=== PATIENT | male | born 1960 | race Caucasian/White ===

== ENCOUNTER → 2019-03-18 10:37 | Outpatient (BNVA) | payer MEDICARE, SELFPAY | PROVIDERS: Family Provider Family Medicine; Visit Provider Family Medicine | DX: M79.602 Pain in left arm (principal) | CPT/HCPCS: 73090 ==

== ENCOUNTER 2021-10-24 13:13 | Observation (INO) | payer MEDICARE, SELFPAY ==
[2021-10-24] VITALS (14 sets, daily range): BP systolic 120–163; BP diastolic 65–113; PULSE 57–78; RESP 12–21; TEMP 36.6; O2SAT 92–96; BMI 41.2
--- NOTE | 2021-10-24 13:29 | ECG_ITS ---
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 Measurements Intervals [place] Rate: 67 P: 29 NE: 179 QRS: -26 QRSD: 100 T: 7 QT: 301 QTc: 319 Interpretive Statements SINUS RHYTHM BORDERLINE LEFT AXIS DEVIATION [QRS AXIS < -20] NONSPECIFIC T-WAVE ABNORMALITY No previous ECG available for comparison Electronically Signed On 10-25-2021 15:36:03 CDT by Christelle Donovan M.D. [id number]
--- NOTE | 2021-10-24 13:51 | XR_ITS ---
WS: [id number] Exam: XR chest 1V portable [id number] Date/Time of Exam: 10/24/2021 2:11 PM Reason For Exam: cp Comparison 08/13/2009. Bibasal plaque atelectasis. The heart is enlarged. The lungs are fully expanded. Prominence of the vizcaino perior mediastinum appears to be chronic. Bony structures are intact. Coronary artery stenting noted. Recommendations: Follow-up with a detailed PA and lateral chest x-ray would yield more accurate evalu ation. XR/XR chest 1V portable [id number] IMPRESSION: 1. Cardiac enlargement. 2. Bibasal plaque atelectasis noted.
--- NOTE | 2021-10-24 14:17 | ED_ITS ---
HPI - General Adult General: Chief complaint: Chest Pain Stated complaint: Chest pains, SOB Time Seen by Provider: 10/24/21 14:00 History of Present Illness: Patient is 61-year-old male history of diabetes, chronic left lower extremity wound, hypertension, CAD with stent x13 followed by cardiology at [facility] presenting to the emergency with complaints of chest pain for the last 3 days. Patient has had intermittent worsening chest pressure for the last 3 days now acutely worsened in the last day. Patient also reports exertional dyspnea and dyspnea at rest. Patient denies any cough, runny nose, sore throat, diarrhea, melena/hematochezia. Patient no complaint. Denies any abdominal pain. Patient says the pain is similar to his prior presentation heart attack. Patient most recently had an evaluation for his heart in February 2021. Onset:3 days ago Duration:3 days Location:home Severity:moderate Associated symptoms: Reports chest pain; Deny dyspnea, nausea, palpitations or vomiting Review of Systems Const: Denies: fever(s) or chills Eyes: Denies: change in vision ENMT: Denies: mouth pain Card: Reports: chest pain and dyspnea on exertion; Denies: palpitations Resp: Denies: dyspnea or non-productive cough GI: Denies: abdominal pain, nausea, vomiting or diarrhea : Denies: dysuria Musc: Denies: extremity pain Skin/Breast: Reports: new lesions (+L diabetic foot wound) Neuro: Denies: weakness in extremities Psych: Reports: other (Normal mood) Rolf/Lymph: Denies: easy bruising [facility] ED PFSH: Medical History CAD (coronary artery disease) COPD (chronic obstructive pulmonary disease) Diabetes Diabetic foot infection Hypertension STEMI (ST elevation myocardial infarction) Social History Smoking and tobacco status: current every day smoker Alcohol intake: never Substance/Drug Use: never Physical Exam Const: COMMON NORMALS: alert HENMT: COMMON NORMALS: atraumatic HEAD & SCALP: atraumatic MOUTH: moist mucous membranes not abnormal Eye: COMMON NORMALS: EOMs intact bilaterally and conjunctivae normal CONJUNCTIVA: Yes conjunctivae normal Neck/C-Spine: COMMON NORMALS: full ROM and supple Resp: COMMON NORMALS: normal respiratory effort and clear to auscultation bilaterally AUSCULTATION: clear to auscultation bilaterally Cardio: COMMON NORMALS: regular rate RATE: regular rate OTHER: 2+ radial pulses b/l GI: COMMON NORMALS: Soft to palpation and non-tender PALPATION: Yes Soft to palpation OTHER: No focal TTP. NO guarding rebound, guarding, rigidity. No CVA tenderness to percussion. Neg Velazquez/Neg McBurney's point tenderness, no suprabupic tenderness to palpation. Extremity: COMMON NORMALS: full ROM Neuro: SENSORIUM/ORIENTATION: Yes alert MOTOR EXAM: No Abnormal motor strength present and Other motor observations present (no focal motor deficits) Psych: COMMON NORMALS: speech normal SPEECH: Yes normal speech MOOD & AFFECT: Yes euthymic mood Skin: NARRATIVE SKIN EXAM: +Granulating wound over the L plantar foot at the base of the first digit without any pus or drainage Course Vital Signs: Vital signs: Vital Signs Temperature 98 F 10/24/21 13:25 Pulse Rate 68 10/24/21 13:25 Respiratory Rate 15 10/24/21 14:41 Blood Pressure 138/85 10/24/21 13:25 Pulse Oximetry 93 10/24/21 14:41 MDM - General Adult Medical Decision Making Patient is 61-year-old male history of diabetes, chronic left lower extremity wound, hypertension, CAD with stent x13 followed by cardiology at [facility] presenting to the emergency with complaints of chest pain for the last 3 days. On exam, patient is hemodynamically stable without any focal findings. Patient continues to have 7 out of 10 chest pain. Patient received morphine with improvement chest pain. Initial EKG not meet STEMI criteria. Given extensive cardiac history, patient will be mated to hospital further work-up chest pain. Patient had 325mg of aspirin and 3 dose of nitro from earlier today. Disposition: admission Lab Data : 10/24/21 14:24 10/24/21 14:24 Radiology Impressions Chest X-Ray 10/24/21 13:51 IMPRESSION: 1. Cardiac enlargement. 2. Bibasal plaque atelectasis noted. Laboratory Results WBC 9.6 10^3/uL (4.0-10.0) 10/24/21 14:24 RBC 4.51 10^6/uL (4.1-5.3) 10/24/21 14:24 Hgb 13.6 g/dL (11.7-16.6) 10/24/21 14:24 Hct 40.2 % (42.0-52.0) L 10/24/21 14:24 MCV 89.1 fl (80-94) 10/24/21 14:24 MCH 30.2 pg (28.0-34.0) 10/24/21 14:24 MCHC 33.8 g/dL (30.0-36.0) 10/24/21 14:24 RDW 12.2 % (12.1-15.1) 10/24/21 14:24 Plt Count 240 10^3/cmm (130-400) 10/24/21 14:24 MPV 8.5 fL (7.4-10.4) 10/24/21 14:24 Neut % (Auto) 69.4 % 10/24/21 14:24 Lymph % (Auto) 20.6 % 10/24/21 14:24 [place] % (Auto) 7.4 % 10/24/21 14:24 Eos % (Auto) 1.7 % 10/24/21 14:24 Baso % (Auto) 0.7 % 10/24/21 14:24 Neut # (Auto) 6.65 10^3/uL (1.8-7.7) 10/24/21 14:24 Lymph # (Auto) 2.0 10^3/uL (0.8-4.8) 10/24/21 14:24 [place] # (Auto) 0.7 10^3/uL (0.2-0.9) 10/24/21 14:24 Eos # (Auto) 0.2 10^3/uL (0.0-0.8) 10/24/21 14:24 Baso # (Auto) 0.1 10^3/uL (0.0-0.1) 10/24/21 14:24 Nucleated RBC % (auto) 0 % 10/24/21 14: Nucleated RBCs # 0.0 /100WBC 10/24/21 14:24 Sodium 130 mmol/L (136-145) L 10/24/21 14:24 Potassium 4.0 mmol/L (3.5-5.1) 10/24/21 14:24 Chloride 88 mmol/L (98-107) L 10/24/21 14:24 Carbon Dioxide 33 mmol/L (22-29) H 10/24/21 14:24 Anion Gap 13.0 (5-19) 10/24/21 14:24 BUN 15 mg/dL (8-23) 10/24/21 14:24 Creatinine 1.0 mg/dL (0.7-1.2) 10/24/21 14:24 GFR Calculation 76.0 mL/min (90-130) L 10/24/21 14:24 Glucose 253 mg/dL (65-115) H 10/24/21 14:24 Calculated Osmolality 279 mOsm/kg (285-295) L 10/24/21 14:24 Calcium 9.5 mg/dL (8.5-10.5) 10/24/21 14:24 Total Bilirubin 0.2 mg/dL (0.15-1.2) 10/24/21 14:24 AST 10 U/L (0-40) 10/24/21 14:24 ALT 19 U/L (0-41) 10/24/21 14:24 Alkaline Phosphatase 67 U/L (40-130) 10/24/21 14:24 Troponin T Baseline 11 ng/L (0-15) 10/24/21 14:24 NT-Pro-B Natriuret Pep 70 pg/mL (0-125) 10/24/21 14:24 NT-Pro-B Natriuret Pep Cancelled 10/24/21 14:24 Total Protein 6.8 g/dL (6.6-8.7) 10/24/21 14:24 Albumin 3.9 g/dL (3.5-5.2) 10/24/21 14:24 Globulin 2.9 g/dL (1.3-4.6) 10/24/21 14:24 Imaging Data Other Imaging: Radiologist's impression: [address] [place] [address] XRay Report Signed Patient: Norman Phan Unit #: [id number] : 1960 Age/Sex: 61 / M ADM Date: 10/24/21 Loc: ER Room/Bed: Attending Dr: Ordering Provider/Ordering MD: Silvestre Willams MD Date of Service: 10/24/21 Procedure(s): XR chest 1V portable [id number] Accession Number(s): [id number] Report Number: [id number] WS: [id number] Exam: XR chest 1V portable [id number] Date/Time of Exam: 10/24/2021 2:11 PM Reason For Exam: cp Comparison 08/13/2009. Bibasal plaque atelectasis. The heart is enlarged. The lungs are fully expanded. Prominence of the superior mediastinum appears to be chronic. Bony structures are intact. Coronary artery stenting noted. Recommendations: Follow-up with a detailed PA and lateral chest x-ray would y ield more accurate evaluation. XR/XR chest 1V portable [id number] IMPRESSION: 1. Cardiac enlargement. 2. Bibasal plaque atelectasis noted. ? 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
[2021-10-24 14:31] LABS: Basophils # 0.1 10^3/uL (0.0-0.1); Basophils % 0.7 %; Eosinophils # 0.2 10^3/uL (0.0-0.8); Eosinophils % 1.7 %; Hematocrit 40.2 % (42.0-52.0); Hemoglobin 13.6 g/dL (11.7-16.6); Lymphocytes % 20.6 %; Mean Corpuscular HGB Conc 33.8 g/dL (30.0-36.0); Mean Corpuscular Hemoglobin 30.2 pg (28.0-34.0); Mean Corpuscular Volume 89.1 fl (80-94); Mean Platelet Volume 8.5 fL (7.4-10.4); Monocytes # 0.7 10^3/uL (0.2-0.9); Monocytes % 7.4 %; Neutrophils # 6.65 10^3/uL (1.8-7.7); Neutrophils % 69.4 %; Nucleated Red Blood Cells % 0 %; Platelet Count 240 10^3/cmm (130-400); Red Blood Count 4.51 10^6/uL (4.1-5.3); Red Cell Distribution Width 12.2 % (12.1-15.1); White Blood Count 9.6 10^3/uL (4.0-10.0)
[2021-10-24] MEDS: morphine 4 mg/mL SDV 1 mL IVP (14:41)
[2021-10-24 14:58] LABS: Troponin(5th) Baseline 11 ng/L (0-15)
--- NOTE | 2021-10-24 15:06 | PC.PHAR ---
PT STATES HIS TAKES CARE OF HIS MEDICATIONS-PTS VERIFIED PTS MEDS-PTS STATES THE PT USES HIS LANTUS SOLOSTAR 37 UNITS TID PLUS SLIDING SCALE RX FILLED 09/30/21 FOR 40 UNITS HS-
[2021-10-24 15:08] LABS: Alanine Aminotransferase 19 U/L (0-41); Albumin Level 3.9 g/dL (3.5-5.2); Alkaline Phosphatase 67 U/L (40-130); Aspartate Amino Transferase 10 U/L (0-40); Blood Urea Nitrogen 15 mg/dL (8-23); Calcium 9.5 mg/dL (8.5-10.5); Carbon Dioxide 33 mmol/L (22-29); Chloride 88 mmol/L (98-107); Globulin 2.9 g/dL (1.3-4.6); Glucose 253 mg/dL (65-115); NT Pro B Type Natriuretic Pept 70 pg/mL (0-125); Osmolality Calculated 279 mOsm/kg (285-295); Sodium 130 mmol/L (136-145); Total Bilirubin 0.2 mg/dL (0.15-1.2); Total Protein 6.8 g/dL (6.6-8.7)
[2021-10-24 16:11] LABS: Estmated Average Glucose 220; Hemoglobin A1C 9.3 % (4.0-6.0)
[2021-10-24 16:27] LABS: Chol HDL Ratio 11.66 mg/dL (1.0-5.00); Cholesterol 373 mg/dL (0-200); HDL Cholesterol 32 mg/dL (60-100); Triglycerides 645 mg/dL (0-150)
[2021-10-24 16:28] LABS: NT Pro B Type Natriuretic Pept 69 pg/mL (0-125)
[2021-10-24 16:41] LABS: LDL Cholesterol Direct 229 mg/dL (0-100)
--- NOTE | 2021-10-24 17:01 | ECG_ITS ---
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 Measurements Intervals [place] Rate: 65 P: 19 ME: 180 QRS: -7 QRSD: 106 T: 12 QT: 345 QTc: 359 Interpretive Statements SINUS RHYTHM WITH OCCASIONAL SUPRAVENTRICULAR PREMATURE COMPLEXES POSSIBLE LATERAL MYOCARDIAL INFARCTION , OF INDETERMINATE AGE [30 ms Q WAVE IN I/aVL/V5/V6] Compared to ECG 10/24/2021 13:29:04 Myocardial infarct finding now present T-wave abnormality no longer present Electronically Signed On 10-25-2021 15:50:19 CDT by Christelle Donovan M.D. [id number]
[2021-10-24 17:07] LABS: Troponin 5 2HR 10.26 ng/L (0-15)
--- NOTE | 2021-10-24 17:45 | PM.HP ---
Providers/Chief Complaint Admitting Physician: Cony Aragon MD Chief Complaint: Chest pains, SOB History of Present Illness Norman Phan is a 61 year old male who has mild intellectual challenges, history of 13 coronary artery stents at [facility], type II diabetic, status post left foot amputation follows up with wound care, hypertensive, allergic to Spiriva history of COPD not oxygen dependent presented today with chief complaint of chest pain. Patient is stating that for last 3 weeks he has been experiencing chest pain which is very similar to the pain when he had stent placed, last stent was placed in December 2020 he has been compliant with his medication, non-smoker. Patient is stating that his chest pain onset is random, he is describing his pain as burning sensation which gives him some chest heaviness sometimes. He has not noticed any fever, nausea, vomiting but endorsing acid reflux. Today they were dropping off his friend in [place] when he started complaining of chest pain to his in the car and his brought him to the ER. At the time of my evaluation patient is stating that he still has a pain however when I put some pressure around his sternum area it was reproducible His left toe has been recently debrided by the wound care, he has been given offloading boot to ambulate, toe seems to be showing good signs of granulation no signs of active bleeding or purulence no sign of cellulitis he has been taking doxycycline for last 4 days Hemodynamically stable however he is hypertensive heart rate is below 80 He is currently doing well on room air Considering history of coronary artery disease and vague symptoms Dr. Donovan was consulted for further evaluation we have requested records from his [facility] I will give him GI cocktail and increase the dose of Coreg He will need optimization of antianginal He uses BiPAP at night Non-smoker, nonalcoholic Patient is not a good historian, is stating that he has been put on rivaroxaban because of his significant coronary disease he never had any diagnosis of atrial flutter or atrial fibrillation DVT or PE Review of Systems Const: Reports: body aches and fatigue Eyes: Denies: change in vision ENMT: Denies: throat pain Card: Reports: chest pain and orthopnea Resp: Reports: dyspnea GI: Reports: nausea : Denies: flank pain Musc: Denies: neck pain Skin/Breast: Reports: lesions Neuro: Denies: headache(s) Psych: Reports: anxiety Endo: Denies: polyuria Rolf/Lymph: Denies: easy bruising All/Imm: Denies: urticaria Medications/Allergies Home Medications Medication Instructions Recorded Confirmed Last Taken Type aspirin 81 mg tablet,delayed 81 mg PO QAM 10/24/21 10/24/21 10/24/21 04:30 History release carvedilol 3.125 mg tablet 3.125 mg PO BID 10/24/21 10/24/21 10/24/21 04:30 History dicyclomine 20 mg tablet 20 mg PO BID 10/24/21 10/24/21 10/24/21 04:30 History doxycycline hyclate 100 mg capsule 100 mg PO BID 10/24/21 10/24/21 10/24/21 04:30 History fluoxetine 20 mg capsule 20 mg PO QAM 10/24/21 10/24/21 10/24/21 04:30 History fluticasone 250 mcg-salmeterol 50 1 inh inhalation BID 10/24/21 10/24/21 10/24/21 History mcg/dose blistr powdr for inhalation (Advair Diskus) furosemide 40 mg tablet 120 mg PO QAM 10/24/21 10/24/21 10/24/21 History gabapentin 600 mg tablet 600 mg PO TID 10/24/21 10/24/21 10/24/21 04:30 History glipizide 10 mg tablet 10 mg PO QAM 10/24/21 10/24/21 10/24/21 04:30 History hydrochlorothiazide 25 mg tablet 25 mg PO QAM 10/24/21 10/24/21 10/24/21 04:30 History insulin glargine 100 unit/mL (3 See Rx Instructions .Route .COMPLEX 10/24/21 10/24/21 10/24/21 History mL) subcutaneous pen (Lantus 42 UNITS Solostar U-100 Insulin) magnesium oxide 400 mg PO QAM 10/24/21 10/24/21 10/24/21 04:30 History metformin 1,000 mg tablet 1,000 mg PO BID 10/24/21 10/24/21 10/24/21 04:30 History methocarbamol 750 mg tablet 750 mg PO TID 10/24/21 10/24/21 10/24/21 04:30 History nifedipine 30 mg tablet,extended 30 mg PO QAM 10/24/21 10/24/21 10/24/21 04:30 History release oxycodone-acetaminophen 10 mg-325 1 tab PO TID PRN Pain 10/24/21 10/24/21 10/24/21 04:30 History mg tablet potassium gluconate 595 mg (99 mg) 595 mg PO DAILY PRN UNKNOWN 10/24/21 10/24/21 Unknown History tablet ranolazine 1,000 mg 1,000 mg PO BID 10/24/21 10/24/21 10/24/21 04:30 History tablet,extended release,12 hr risperidone 1 mg tablet See Rx Instructions .Route .COMPLEX 10/24/21 10/24/21 10/24/21 04:30 History 1 MG rivaroxaban 2.5 mg tablet (Xarelto) 2.5 mg PO BID 10/24/21 10/24/21 10/24/21 04:30 History spironolactone 25 mg tablet 12.5 mg PO QAM 10/24/21 10/24/21 10/24/21 04:30 History trazodone 50 mg tablet 100 mg PO BEDTIME 10/24/21 10/24/21 10/23/21 History Allergies Allergy/AdvReac Type Severity Reaction Status Date / Time insulin aspart Allergy ALGY-Hives Verified 10/24/21 14:49 [From Novolog U-100 Insulin aspart] tiotropium Allergy CHEST Verified 10/24/21 14:49 [From Spiriva with TIGHTNESS HandiHaler] PFSH Acute PFSH: Medical History (Updated 10/24/21 @ 18:48 by Esha Galaviz MD) Amputation toe CAD (coronary artery disease) COPD (chronic obstructive pulmonary disease) Diabetes Diabetic foot infection Hypertension STEMI (ST elevation myocardial infarction) Surgical History Stented coronary artery Family History (Updated 10/24/21 @ 18:48 by Esha Galaviz MD) Other Diabetes Social History Smoking and tobacco status: current every day smoker Alcohol intake: never Substance/Drug Use: never Vitals/I&O/Wt Last Vital Signs Temp 98 F 10/24/21 13:25 Pulse 71 10/24/21 16:30 Resp 15 10/24/21 16:30 BP 163/88 10/24/21 17:00 Pulse Ox 93 10/24/21 16:30 O2 Del Method 10/24/21 17:00 Weight last 48 hrs Weight 149.685 kg Weight 149.685 kg Physical Exam Narrative: Morbidly obese male Has reproducible chest pain No active pain at the time of evaluation He is hypertensive EOMI, PERRLA Nonfocal neuro exam Abdomen distended however soft nontender S1, S2 Grade 2/6 systolic murmur Left foot toes showing good signs of granulation no active signs of purulence Good healing tissue Dressing was changed No signs of edema of legs Currently doing well on room air at the bedside Data : 10/24/21 14:24 10/24/21 14:24 A&P Assessment and plan (1) Chest pain: Status: Acute (2) Hypertensive urgency: Status: Acute Plan Reproducible chest pain Atypical features However considering significant coronary disease with history of 13 stents we have requested records from his hospital Requested Dr. Donovan to evaluate him as well Troponin nonsignificant Nonspecific T wave changes Chest pain is reproducible Trend troponin and EKG I will give him GI cocktail, I will optimize his antianginal for now increase the dose of Coreg he is hypertensive ideally his blood pressure should be below 130 considering history of diabetes Dyslipidemia and poorly controlled type 2 diabetes seem to be causing worsening of coronary disease, patient is endorsing significant family history of coronary disease as well Uncontrolled type 2 diabetes as per the he takes 37 units of Lantus 3 times a day along 7 units of short acting insulin Premeal and still sugar is above 200 at home Hyponatremia related to hyperglycemia A1c is 9.3 Left toe blister he is only taken 4 days of doxycycline which was prescribed by PCP, he was recently released from wound care his toe is showing good signs of granulation tissue and healing He has an offloading boot as well He does have home health services, wound care follow-up COPD not oxygen dependent uses BiPAP at night It seems to be related to severe sleep apnea I will continue BiPAP overnight We will follow-up with cardiology recommendations For now he needs optimization of antianginal medications Full code DVT prophylaxis will be sufficed with rivaroxaban Check D-dimer Extremity no swelling Consistent carb cardiac diet Attestations Medical Necessity Statement*: Less than 2 midnights anticipated for work-up of chest pain Time Spent in Patient Care: 40 Coding Level of Care Code 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
[2021-10-24 17:59] LABS: Troponin 5 2HR Delta -0.74 ABS# (0-10)
--- NOTE | 2021-10-24 18:21 | P.CONIM_ITS ---
Providers/Reason For Consult Consulting Physician/Specialty*: STEFANIE Donovan MD/cardiology Reason for Consult*: Patient is a chest pain/ASHD Requesting Physician: Dr. Aragon Attending Physician: Cony Aragon MD History of Present Illness History of Present Illness Norman Phan is a 61 year old male with a history of coronary artery disease, multiple myocardial infarction and multiple PCI's, he is presenting with a 3-day history of chest pain. This patient is a very poor historian. He also has some learning disabilities. According the patient, he started having chest pain 3 days ago. The intensity of the pain was 6/10. It was in the upper substernal region, radiating across the chest. It has been a constant pain. No significant changes. He has no associated nausea, vomiting, sweating, palpitation or unusual shortness of breath. Today he was taking a troubled kid today new residence here in [place]. While being here, his pain started getting worse, became 9/10. For that reason, he decided to come to the emergency room. Last night he took 3 sublingual nitro at 5 minutes interval. After the third 1, he got some relief of the pain. He took 2 nitroglycerin mainly to get some sleep since he was not having any sleep for the previous couple of nights. According to the patient, he had a total of 9 heart attacks and 13 stent placements. The most recent PCI was in December of last year. 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 Most of his coronary interventions were done at the [facility] in [place]. He has been compliant with medications. He has not had any significant chest pain since his last intervention, up until 3 days ago. According to the patient, the chest pain that he has now is different from the pain that he used to get prior to his PCI's. He also is known to have type 2 diabetes, high blood pressure, dyslipidemia, multiple CVAs, peripheral artery disease and COPD. He has a nonhealing ulcer in the left foot. He is left big toe and second toe where amputated recently. Currently the wound seems to be healing. He has a questionable history of peripheral arterial disease but the details are not known. He is taking Xarelto 2.5 mg p.o. daily. He also is known to have carotid artery disease and had? Carotid endarterectomy on the right side. He had some complications after carotid surgery?. Currently at the time of my examination, the pain is 3/10. He got some relief of the symptoms after GI cocktail. Review of Systems Narrative: CONSTITUTIONAL: No fever or chills. Has some amount of tiredness. EYES: No blurring of vision or other visual disturbances lately. ENT: No hoarseness of voice, auditory disturbances or sore throat. CARDIOVASCULAR: As mentioned above. RESPIRATORY: History of COPD GASTROINTESTINAL: No hematemesis or melena. GENITOURINARY: No dysuria or hematuria. INTEGUMENTARY: No skin rashes or history of skin cancer. NEURO: History of multiple CVAs PSYCHIATRIC: No history of psychosis or major depression. HEMATOLOGIC: No bleeding disorders or significant anemia. ENDOCRINE: Type 2 diabetes MUSCULOSKELETAL: Diabetic foot ulcer? Osteomyelitis and toe amputations ALLERGY/IMMUNOLOGY: As mentioned above. Medications/Allergies Home Medications Medication Instructions Recorded Confirmed Last Taken Type aspirin 81 mg tablet,delayed 81 mg PO QAM 10/24/21 10/24/21 10/24/21 04:30 History release carvedilol 3.125 mg tablet 3.125 mg PO BID 10/24/21 10/24/21 10/24/21 04:30 History dicyclomine 20 mg tablet 20 mg PO BID 10/24/21 10/24/21 10/24/21 04:30 History doxycycline hyclate 100 mg capsule 100 mg PO BID 10/24/21 10/24/21 10/24/21 04:30 History fluoxetine 20 mg capsule 20 mg PO QAM 10/24/21 10/24/21 10/24/21 04:30 History fluticasone 250 mcg-salmeterol 50 1 inh inhalation BID 10/24/21 10/24/21 10/24/21 History mcg/dose blistr powdr for inhalation (Advair Diskus) furosemide 40 mg tablet 120 mg PO QAM 10/24/21 10/24/21 10/24/21 History gabapentin 600 mg tablet 600 mg PO TID 10/24/21 10/24/21 10/24/21 04:30 History glipizide 10 mg tablet 10 mg PO QAM 10/24/21 10/24/21 10/24/21 04:30 History hydrochlorothiazide 25 mg tablet 25 mg PO QAM 10/24/21 10/24/2110/24/22 04:30 History insulin glargine 100 unit/mL (3 See Rx Instructions .Route .COMPLEX 10/24/21 10/24/21 10/24/21 History mL) subcutaneous pen (Lantus 42 UNITS Solostar U-100 Insulin) magnesium oxide 400 mg PO QAM 10/24/21 10/24/21 10/24/21 04:30 History metformin 1,000 mg tablet 1,000 mg PO BID 10/24/21 10/24/21 10/24/21 04:30 History methocarbamol 750 mg tablet 750 mg PO TID 10/24/21 10/24/21 10/24/21 04:30 History nifedipine 30 mg tablet,extended 30 mg PO QAM 10/24/21 10/24/21 10/24/21 04:30 History release oxycodone-acetaminophen 10 mg-325 1 tab PO TID PRN Pain 10/24/21 10/24/21 09/0 03/16 04:30 History mg tablet potassium gluconate 595 mg (99 mg) 595 mg PO DAILY PRN UNKNOWN 10/24/21 10/24/21 Unknown History tablet ranolazine 1,000 mg 1,000 mg PO BID 10/24/21 10/24/21 10/24/21 04:30 History tablet,extended release,12 hr risperidone 1 mg tablet See Rx Instructions .Route .COMPLEX 10/24/21 10/24/21 10/24/21 04:30 History 1 MG rivaroxaban 2.5 mg tablet (Xarelto) 2.5 mg PO BID 10/24/21 10/24/21 10/24/21 04:30 History spironolactone 25 mg tablet 12.5 mg PO QAM 10/24/21 10/24/21 10/24/21 04:30 History trazodone 50 mg tablet 100 mg PO BEDTIME 10/24/21 10/24/21 10/23/21 History Allergies Allergy/AdvReac Type Severity Reaction Status Date / Time insulin aspart Allergy ALGY-Hives Verified 10/24/21 14:49 [From Novolog U-100 Insulin aspart] tiotropium Allergy CHEST Verified 10/24/21 14:49 [From Spiriva with TIGHTNESS HandiHaler] PFSH Acute PFSH: Medical History (Updated 10/24/21 @ 19:24 by Christelle Donovan MD) Amputation toe CAD (coronary artery disease) COPD (chronic obstructive pulmonary disease) Diabetes Diabetic foot infection Hypertension STEMI (ST elevation myocardial infarction) Surgical History Stented coronary artery Family History (Updated 10/24/21 @ 18:48 by Esha Galaviz MD) Other Diabetes Social History Smoking and tobacco status: current every day smoker Alcohol intake: never Substance/Drug Use: never Vitals/I&O/Wt Last Vital Signs Temp 98 F 10/24/21 13:25 Pulse 71 10/24/21 16:30 Resp 15 10/24/21 16:30 BP 163/88 10/24/21 17:00 Pulse Ox 93 10/24/21 16:30 O2 Del Method 10/24/21 17:00 Weight last 48 hrs Weight 330 lb Weight 330 lb Physical Exam Narrative: GENERAL: The patient is alert and oriented times three. Not in any acute distress. Moderately obese HEENT: No significant pallor, icterus or lymphadenopathy.Oral cavity: There are no mucous membrane lesions. Patient is legally blind in the left eye, from traumatic injury NECK: Trachea appears to be central. No masses noted. No JVD or thyromegaly appreciated. RESPIRATORY: Chest is symmetrical. No intercostals muscle retraction or any accessory muscle activation. There is no chest wall tenderness. Breath sounds are heard bilaterally. No rales or rhonchi heard. No evidence of any consolidation. BREASTS: Deferred. HEART: The heart sounds are normal. No S3 or S4. No significant murmurs. No pericardial rub ABDOMEN: No vessel pulsations or distention. No tenderness. No organomegaly appreciated. Bowel sounds are normally heard. : Deferred. RECTAL: Deferred. LYMPHATIC: No lymphadenopathy noted in the neck. EXTREMITIES: The left foot is bandaged. The dorsalis pedis and posterior pulses on the right side is palpable but somewhat weak. MUSCULOSKELETAL: No acute joint deformities or swelling SKIN: There are no significant rashes or ecchymosis NEUROPSYCHIATRIC: The patient is alert and oriented x3. Appears to be in a good mood. No tremors or rigidity noted. Data : 10/24/21 14:24 10/24/21 14:24 Other Labs: Laboratory Last Values WBC 9.6 10^3/uL (4.0-10.0) 10/24/21 14:24 RBC 4.51 10^6/uL (4.1-5.3) 10/24/21 14:24 Hgb 13.6 g/dL (11.7-16.6) 10/24/21 14:24 Hct 40.2 % (42.0-52.0) L 10/24/21 14:24 MCV 89.1 fl (80-94) 10/24/21 14:24 MCH 30.2 pg (28.0-34.0) 10/24/21 14:24 MCHC 33.8 g/dL (30.0-36.0) 10/24/21 14:24 RDW 12.2 % (12.1-15.1) 10/24/21 14:24 Plt Count 240 10^3/cmm (130-400) 10/24/21 14:24 MPV 8.5 fL (7.4-10.4) 10/24/21 14:24 Neut % (Auto) 69.4 % 10/24/21 14:24 Lymph % (Auto) 20.6 % 10/24/21 14:24 [place] % (Auto) 7.4 % 10/24/21 14:24 Eos % (Auto) 1.7 % 10/24/21 14:24 Baso % (Auto) 0.7 % 10/24/21 14:24 Neut # (Auto) 6.65 10^3/uL (1.8-7.7) 10/24/21 14:24 Lymph # (Auto) 2.0 10^3/uL (0.8-4.8) 10/24/21 14:24 [place] # (Auto) 0.7 10^3/uL (0.2-0.9) 10/24/21 14:24 Eos # (Auto) 0.2 10^3/uL (0.0-0.8) 10/24/21 14:24 Baso # (Auto) 0.1 10^3/uL (0.0-0.1) 10/24/21 14:24 Nucleated RBC % (auto) 0 % 10/24/21 14:24 Nucleated RBCs # 0.0 /100WBC 10/24/21 14:24 PT 13.90 SECONDS (12.1-14.9) 10/24/21 14:24 INR 1.04 (0.8-1.2) 10/24/21 14:24 APTT 36.6 SECONDS (23.9-36.7) 10/24/21 14:24 Sodium 130 mmol/L (136-145) L 10/24/21 14:24 Potassium 4.0 mmol/L (3.5-5.1) 10/24/21 14:24 Chloride 88 mmol/L (98-107) L 10/24/21 14:24 Carbon Dioxide 33 mmol/L (22-29) H 10/24/21 14:24 Anion Gap 13.0 (5-19) 10/24/21 14:24 BUN 15 mg/dL (8-23) 10/24/21 14:24 Creatinine 1.0 mg/dL (0.7-1.2) 10/24/21 14:24 GFR Calculation 76.0 mL/min (90-130) L 10/24/21 14:24 Glucose 253 mg/dL (65-115) H 10/24/21 14:24 Estimat Average Glucose 220 10/24/21 14:24 Hemoglobin A1c 9.3 % (4.0-6.0) H 10/24/21 14:24 Calculated Osmolality 279 mOsm/kg (285-295) L 10/24/21 14:24 Calcium 9.5 mg/dL (8.5-10.5) 10/24/21 14:24 Total Bilirubin 0.2 mg/dL (0.15-1.2) 10/24/21 14:24 AST 10 U/L (0-40) 10/24/21 14:24 ALT 19 U/L (0-41) 10/24/21 14:24 Alkaline Phosphatase 67 U/L (40-130) 10/24/21 14:24 Troponin T Baseline 11 ng/L (0-15) 10/24/21 14:24 Troponin T 120 Minute 10.26 ng/L (0-15) 10/24/21 16:30 Delta Troponin T -0.74 ABS# (0-10) L 10/24/21 16:30 NT-Pro-B Natriuret Pep 69 pg/mL (0-125) 10/24/21 14:24 NT-Pro-B Natriuret Pep 70 pg/mL (0-125) 10/24/21 14:24 NT-Pro-B Natriuret Pep Cancelled 10/24/21 14:24 Total Protein 6.8 g/dL (6.6-8.7) 10/24/21 14:24 Albumin 3.9 g/dL (3.5-5.2) 10/24/21 14:24 Globulin 2.9 g/dL (1.3-4.6) 10/24/21 14:24 Triglycerides 645 mg/dL (0-150) H 10/24/21 14:24 Cholesterol 373 mg/dL (0-200) H 10/24/21 14:24 LDL Cholesterol Direct 229 mg/dL (0-100) H 10/24/21 14:24 LDL Cholesterol, Calc Not Reportable 10/24/21 14:24 HDL Cholesterol 32 mg/dL (60-100) L 10/24/21 14:24 LDL/HDL Ratio Not Reportable 10/24/21 14:24 Cholesterol/HDL Ratio 11.66 mg/dL (1.0-5.00) H 10/24/21 14:24 TSH 4.20 uIU/mL (0.27-4.20) 10/24/21 14:24 EKG 1: My Interpretation: Normal sinus rhythm with a rate of 65 bpm. Diffuse nonspecific T wave changes. EKG computer-generated impression: Chest X-Ray 10/24/21 13:51 IMPRESSION: 1. Cardiac enlargement. 2. Bibasal plaque atelectasis noted. A&P Assessment and plan (1) Chest pain: the patient's chest pain is somewhat atypical. EKG is unremarkable. No e vidence of myocardial injury. For further evaluation of his symptoms, we may go ahead and do an echocardiogram. I also may consider doing a Myocardial perfusion imaging, to evaluate for any underlying coronary ischemia. We will try to get the medical records from [place]. I may continue on the current medication. Topical nitrates may be added to the current regimen. In the absence of any EKG changes or any myocardial injury, I may hold off on the heparin. Status: Acute (2) Atherosclerotic heart disease of ruby coronary artery with other forms of angina pectoris: As mentioned above. We will try to get the medical records from the [facility]. Status: Acute (3) Benign essential HTN: Currently the blood pressure is a we will try to optimize the antihypertensive medications. Status: Acute (4) Peripheral arterial disease: Patient may continue with he has no specific symptoms of peripheral arterial insufficiency at this time. Status: Acute (5) Non-healing ulcer: Patient is being followed up at the wound care clinic. Currently the wound seems to be healing especially after the amputation. Status: Acute (6) T2DM (type 2 diabetes mellitus): Aggressive management of the diabetes will be appropriate. Status: Acute Plan After reviewing the above and also based on the patient's clinical progress, further recommendations will be made. 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
[2021-10-24] MEDS: carvedilol 25 mg Tablet PO (18:49)
[2021-10-24] MEDS: lidocaine 2% viscous 15 ML, aluminum-mag hydrox-simethicon 30 ML, sucralfate oral liq 1 GM PO (18:49)
[2021-10-24] MEDS: oxyCODONE-APAP 10-325 mg Tablet 1 TAB PO (18:50)
--- NOTE | 2021-10-24 18:56 | USCV_ITS ---
Norman Phan Age: 61 Gender: M : 1960 Exam Date: 10/24/2021 21:25 Ordering Phys: Esha Galaviz MD Technologist: ASIF Exam Location: [facility] [place] Indication: UA. History of cardiac stenting 2017 BP: 163 / 88 HR: 71 Rhythm: Sinus Technical Quality: Technically difficult study no adequate apical views MEASUREMENTS (Male / Female) Normal Values 2D ECHO LV Diastolic Diameter PLAX 4.6 cm 4.2 - 5.9 / 3.9 - 5.3 cm LV Systolic Diameter PLAX 3.2 cm IVS Diastolic Thickness 1.4 cm 0.6 - 1.0 / 0.6 - 0.9 cm IVS Systolic Thickness 1.6 cm LVPW Diastolic Thickness 1.5 cm 0.6 - 1.0 / 0.6 - 0.9 cm LVPW Systolic Thickness 1.5 cm LVOT Diameter 2.2 cm LV Ejection Fraction 2D Teich 58.5 % LV Ejection Fraction MOD 2C 71.8 % LV Ejection Fraction 2C AL 73.3 % LA Diameter 4.1 cm LA Width 4.5 cm LA Height 5.3 cm RA Width 4.3 cm RA Height 6.4 cm Aorta at Sinotubular Diameter 3.5 cm IVC Diameter 1.6 cm M-MODE Aortic Annulus Diameter 4.0 cm LA Ao Ratio MM 1.1 MV E Point Septal Separation 0.6 cm DOPPLER AV Peak Velocity 93.0 cm/s LVOT Peak Velocity 78.0 cm/s AV Area Cont Eq vti 3.8 cm squared AV Area Cont Eq pk 3.3 cm squared MV Area PHT 4.1 cm squared Mitral E to A Ratio 1.1 MV E' Velocity 56.0 cm/s Mitral E to LV E' Septal Ratio 6.8 TV Peak E Velocity 29.0 cm/s PV Peak Velocity 80.0 cm/s RV Acceleration Time 0.1 s RV Ejection Time 0.4 s RV AcT/ET 0.3 FINDINGS Left Ventricle Normal left ventricular size and systolic function, EF 72 %. Mild left ventricular hypertrophy. Right Ventricle Possibly normal RV size and ejection fraction Right Atrium Possibly of normal size Left Atrium Possibly of normal size Mitral Valve No gross abnormalities noted Aortic Valve Thickened aortic valve. Tricuspid Valve No gross abnormalities noted Pulmonic Valve Trace pulmonary valve regurgitation. Pericardium No pericardial effusion. Aorta Plaque seen in the ascending aorta. IVC Inferior vena cava not visualized. CONCLUSIONS Normal left ventricular size and systolic function, EF 72 %. Mild left ventricular hypertrophy. No gross wall motion abnormalities.Thickened aortic valve. No gross abnormalities in the mitral and tricuspid valves Technically difficult study because of poor apical window. Echo contrast was used for segmental wall motion analysis. Poor color-flow Doppler signals Dr Christelle Donovan MD FAC (Electronically Signed) Final Date: 25 October 2021 06:59 S
[2021-10-24 19:02] LABS: INR 1.04 (0.8-1.2)
[2021-10-24 19:04] LABS: Partial Thromboplastin Time 36.6 SECONDS (23.9-36.7)
--- NOTE | 2021-10-24 19:51 | ECG_ITS ---
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 Measurements Intervals [place] Rate: 55 P: 51 SC: 183 QRS: -20 QRSD: 103 T: 9 QT: 443 QTc: 427 Interpretive Statements SINUS BRADYCARDIA NONSPECIFIC T-WAVE ABNORMALITY Compared to ECG 10/24/2021 17:01:05 T-wave abnormality now present Sinus rhythm no longer present Myocardial infarct finding no longer present Electronically Signed On 10-25-2021 15:53:32 CDT by Christelle Donovan M.D. [id number]
[2021-10-24 20:27] LABS: D Dimer 0.45 ug/mIFEU (0-0.59)
[2021-10-24] MEDS: risperiDONE 1 mg Tablet PO (20:33)
[2021-10-24] MEDS: methocarbamol 750 mg Tablet PO (20:33)
[2021-10-24] MEDS: gabapentin 300 mg Capsule 600 MG PO (20:33)
[2021-10-24 21:06] LABS: Troponin 5 6HR 9.93 ng/L (0-15)
[2021-10-24 21:15] LABS: Troponin 5 6HR Delta -1.07 ng/L (0-12)
[2021-10-24] MEDS: trazodone 50 mg Tablet 100 MG PO (22:21)
[2021-10-25] VITALS (11 sets, daily range): BP systolic 115–159; BP diastolic 71–98; PULSE 54–76; RESP 13–19; TEMP 36.4–37.1; O2SAT 88–95
--- NOTE | 2021-10-25 | ECG_ITS ---
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 Interpretive Statements NAME OF STUDY: LEXISCAN SESTAMIBI STRESS TEST INDICATION: Chest Pain; Athrosclerotic Heart Disease, PROCEDURE: At the baseline, the EKG revealed sinus rhythm with frequent supraventricular ectopics. Nonspecific T wave changes. Poor R wave progression. The baseline heart was 74 bpm with a blood pressue of 157/92 mm of Hg Lexiscan was infused over a period of 20 seconds. A total of 0.4 milligrams of Lexiscan was infused. The stress phase was continued for a total of 5 minutes. Heart rate at the end of the stress phase was 79 bpm with a blood pressure 161/96 mm of Hg. The EKG at the peak infusion revealed no significant changes. Sestamibi was injected 20 seconds after the Lexiscan infusion. Heart rate at the end of the recovery phase was 79 bpm with a blood pressure of 157/94 mm of Hg. CONCLUSION: 1. No significant EKG changes with the LexiScan infusion 2. No LexiScan induced chest pain or cardiac arrhythmia 3. Normal blood pressure and heart rate response 4. Sestamibi/sestamibi perfusion scan pending; see separate report. Electronically Signed On 10-25-2021 16:42:55 CDT by Christelle Donovan M.D. [id number]
[2021-10-25] MEDS: oxyCODONE-APAP 10-325 mg Tablet 1 TAB PO ×2 (04:34→14:15)
[2021-10-25 05:10] LABS: Basophils # 0.1 10^3/uL (0.0-0.1); Basophils % 0.9 %; Eosinophils # 0.2 10^3/uL (0.0-0.8); Eosinophils % 2.3 %; Hematocrit 41.2 % (42.0-52.0); Hemoglobin 13.9 g/dL (11.7-16.6); Lymphocytes # 1.6 10^3/uL (0.8-4.8); Lymphocytes % 19.9 %; Mean Corpuscular HGB Conc 33.7 g/dL (30.0-36.0); Mean Corpuscular Hemoglobin 30.2 pg (28.0-34.0); Mean Corpuscular Volume 89.4 fl (80-94); Mean Platelet Volume 8.8 fL (7.4-10.4); Monocytes # 0.7 10^3/uL (0.2-0.9); Monocytes % 8.3 %; Neutrophils # 5.48 10^3/uL (1.8-7.7); Neutrophils % 68.3 %; Nucleated Red Blood Cells % 0 %; Platelet Count 230 10^3/cmm (130-400); Red Blood Count 4.61 10^6/uL (4.1-5.3); Red Cell Distribution Width 12.2 % (12.1-15.1)
[2021-10-25] MEDS: perflutren protein-a microsphr 0.22 mg/mL SDV 3 mL IV (05:38)
[2021-10-25 05:40] LABS: Alanine Aminotransferase 20 U/L (0-41); Albumin Level 3.9 g/dL (3.5-5.2); Alkaline Phosphatase 68 U/L (40-130); Aspartate Amino Transferase 12 U/L (0-40); Blood Urea Nitrogen 12 mg/dL (8-23); Calcium 10.1 mg/dL (8.5-10.5); Carbon Dioxide 33 mmol/L (22-29); Chloride 92 mmol/L (98-107); Glucose 256 mg/dL (65-115); Magnesium 1.6 mg/dL (1.7-2.3); Osmolality Calculated 287 mOsm/kg (285-295); Sodium 134 mmol/L (136-145); Total Bilirubin 0.4 mg/dL (0.15-1.2); Total Protein 6.9 g/dL (6.6-8.7)
[2021-10-25] MEDS: FUROsemide 40 mg Tablet 60 MG PO (05:44)
[2021-10-25] MEDS: magnesium oxide 400 mg tablet PO (05:44)
[2021-10-25] MEDS: aspirin 81 mg EC Tablet PO (05:44)
[2021-10-25] MEDS: fluoxetine 20 mg Capsule PO (05:44)
[2021-10-25] MEDS: NIFEdipine ER (24 hr) 30 mg Tablet PO (05:45)
[2021-10-25] MEDS: spironolactone 25 mg Tablet 12.5 MG PO (05:45)
[2021-10-25 06:47] LABS: Glucose Point of Care 280 mg/dL (70-110)
--- NOTE | 2021-10-25 07:37 | P.PN_ITS ---
Subjective Subjective: The patient had a Myocardial perfusion imaging today. The scan was of low probability for ischemia. However the patient is complaining of intermittent chest pain especially when he gets up and move around. He also complains of chest wall pain. He seems to be somewhat confused about his symptoms. According to his , he has been having chest pains with exertion. Today he responded to 1 sublingual nitro when he had the pain in the chest. Currently he is pain-free. Medications: Medication Review Details: Current Medications Acetaminophen (Acetaminophen 325 Mg Tablet) 650 mg PO Q6H PRN PRN Reason: Mild/Mod Pain Or Temp >/= 101 Aminophylline (Aminophylline 25 Mg/Ml Sdv 10 Ml) 25 mg IVP Q2M PRN PRN Reason: see dose instructions Stop: 10/26/21 06:43 Aspirin (Aspirin 81 Mg Ec Tablet) 81 mg PO [facility] Last Admin: 10/25/21 05:44 Dose: 81 mg Carvedilol (Carvedilol 25 Mg Tablet) 25 mg PO BID [facility] Last Admin: 10/24/21 18:49 Dose: 25 mg Dextrose (Dextrose 50% Syringe 50 Ml) 25 ml IVP ONCE PRN; Protocol PRN Reason: hypoglycemia protocol Dextrose (Dextrose 50% Syringe 50 Ml) 50 ml IVP PRN PRN; Protocol PRN Reason: hypoglycemia protocol Doxycycline Monohydrate (Doxycycline 100 Mg Tablet) 100 mg PO BID [facility] Fluoxetine HCl (Fluoxetine 20 Mg Capsule) 20 mg PO [facility] Last Admin: 10/25/21 05:44 Dose: 20 mg Furosemide (Furosemide 40 Mg Tablet) 60 mg PO [facility] Last Admin: 10/25/21 05:44 Dose: 60 mg Gabapentin (Gabapentin 300 Mg Capsule) 600 mg PO TID [facility] Last Admin: 10/24/21 20:33 Dose: 600 mg Glucagon (Glucagon 1 Mg/Ml Inj 1 Ml) 1 mg IM ONCE PRN; Protocol PRN Reason: Adult Acute Hypoglycemia Prot. Dextrose (D5w) 500 mls @ 100 mls/hr IV ONCE PRN; Protocol PRN Reason: Adult Acute Hypoglycemia Prot Insulin Glargine (Insulin Glargine 100 Units/1 Ml) 30 unit SUBCUT BID@0900,2100 [facility] Insulin Human Lispro (Insulin Lispro 100 Unit/1 Ml) [facility]; Protocol Magnesium Oxide (Magnesium Oxide 400 Mg Tablet) 400 mg PO QAM [facility] Last Admin: 10/25/21 05:44 Dose: 400 mg Methocarbamol (Methocarbamol 750 Mg Tablet) 750 mg PO TID [facility] Last Admin: 10/24/21 20:33 Dose: 750 mg Nifedipine (Nifedipine Er (24 Hr) 30 Mg Tablet) 30 mg PO QAM [facility] Last Admin: 10/25/21 05:45 Dose: 30 mg Nitroglycerin (Nitroglycerin 0.4 Mg Sublingual Tablet) 0.4 mg SUBLINGUAL Q5M PRN PRN Reason: CHEST PAIN Nitroglycerin (Nitroglycerin 0.4 Mg Sublingual Tablet) 0.4 mg SUBLINGUAL Q5M PRN PRN Reason: CHEST PAIN Stop: 10/26/21 06:43 Ondansetron HCl (Ondansetron 2 Mg/Ml Sdv 2 Ml) 4 mg IVP Q8H PRN PRN Reason: vomiting, or N/V if npo Ondansetron HCl (Ondansetron 2 Mg/Ml Sdv 2 Ml) 4 mg IVP Q2M PRN PRN Reason: NAUSEA Oxycodone/Acetaminophen (Oxycodone-Apap 10-325 Mg Tablet) 1 tab PO Q8H PRN PRN Reason: MODERATE PAIN Last Admin: 10/25/21 04:34 Dose: 1 tab Oxycodone/Acetaminophen (Oxycodone-Apap 10-325 Mg Tablet) 1 tab PO TID PRN PRN Reason: MODERATE Pain Pantoprazole Sodium (Pantoprazole Dr 40 Mg Tablet) 40 mg PO DAILY [facility] Ranolazine (Ranolazine (12hr) 500 Mg Tablet) 1,000 mg PO BID@0900,2099 [facility] Regadenoson (Regadenoson 0.4 Mg/5 Ml Syringe) 0.4 mg IVP ONCE PRN PRN Reason: Lexiscan Stress Test Risperidone (Risperidone 1 Mg Tablet) 0 mg PO 00,2099 [facility] Last Admin: 10/24/21 20:33 Dose: 2 mg Rivaroxaban (Rivaroxaban 10 Mg Tablet) 2.5 mg PO BID@0900,2100 [facility] Spironolactone (Spironolactone 25 Mg Tablet) [facility] Last Admin: 10/25/21 05:45 Dose: 12.5 mg Trazodone HCl (Trazodone 50 Mg Tablet) 100 mg PO BEDTIME [facility] Last Admin: 10/24/21 22:21 Dose: 100 mg Vitals/I&O/Wt Last Vital Signs Temp 98.7 F 10/25/21 04:00 Pulse 72 10/25/21 06:00 Resp 18 10/25/21 04:34 BP 159/98 10/25/21 04:00 Pulse Ox 93 10/25/21 04:00 O2 Del Method 10/25/21 04:00 FiO2 30 10/25/21 02:45 Weight last 48 hrs Weight 330 lb Weight 330 lb Physical Exam Narrative: GENERAL: The patient is alert and oriented times three. Not in any acute distress. Moderately obese HEENT: No significant pallor, icterus or lymphadenopathy.Oral cavity: There are no mucous membrane lesions. Patient is legally blind in the left eye, from traumatic injury NECK: Trachea appears to be central. No masses noted. No JVD or thyromegaly appreciated. RESPIRATORY: Chest is symmetrical. No intercostals muscle retraction or any accessory muscle activation. There is no chest wall tenderness. Breath sounds are heard bilaterally. No rales or rhonchi heard. No evidence of any consolidation. BREASTS: Deferred. HEART: The heart sounds are normal. No S3 or S4. No significant murmurs. No pericardial rub ABDOMEN: No vessel pulsations or distention. No tenderness. No organomegaly appreciated. Bowel sounds are normally heard. : Deferred. RECTAL: Deferred. LYMPHATIC: No lymphadenopathy noted in the neck. EXTREMITIES: The left foot is bandaged. The dorsalis pedis and posterior pulses on the right side is palpable but somewhat weak. MUSCULOSKELETAL: No acute joint deformities or swelling SKIN: There are no significant rashes or ecchymosis NEUROPSYCHIATRIC: The patient is alert and oriented x3. Appears to be in a good mood. No tremors or rigidity noted. Data : 10/25/21 04:33 10/25/21 04:33 Other Labs: Laboratory Last Values WBC 8.0 10^3/uL (4.0-10.0) 10/25/21 04:33 RBC 4.61 10^6/uL (4.1-5.3) 10/25/21 04:33 Hgb 13.9 g/dL (11.7-16.6) 10/25/21 04:33 Hct 41.2 % (42.0-52.0) L 10/25/21 04:33 MCV 89.4 fl (80-94) 10/25/21 04:33 MCH 30.2 pg (28.0-34.0) 10/25/21 04:33 MCHC 33.7 g/dL (30.0-36.0) 10/25/21 04:33 RDW 12.2 % (12.1-15.1) 10/25/21 04:33 Plt Count 230 10^3/cmm (130-400) 10/25/21 04:33 MPV 8.8 fL (7.4-10.4) 10/25/21 04:33 Neut % (Auto) 68.3 % 10/25/21 04:33 Lymph % (Auto) 19.9 % 10/25/21 04:33 [place] % (Auto) 8.3 % 10/25/21 04:33 Eos % (Auto) 2.3 % 10/25/21 04:33 Baso % (Auto) 0.9 % 10/25/21 04:33 Neut # (Auto) 5.48 10^3/uL (1.8-7.7) 10/25/21 04:33 Lymph # (Auto) 1.6 10^3/uL (0.8-4.8) 10/25/21 04:33 [place] # (Auto) 0.7 10^3/uL (0.2-0.9) 10/25/21 04:33 Eos # (Auto) 0.2 10^3/uL (0.0-0.8) 10/25/21 04:33 Baso # (Auto) 0.1 10^3/uL (0.0-0.1) 10/25/21 04:33 Nucleated RBC % (auto) 0 % 10/25/21 04:33 Nucleated RBCs # 0.0 /100WBC 10/25/21 04:33 PT 13.90 SECONDS (12.1-14.9) 10/24/21 14:24 INR 1.04 (0.8-1.2) 10/24/21 14:24 APTT 36.6 SECONDS (23.9-36.7) 10/24/21 14:24 D-Dimer 0.45 ug/mIFEU (0-0.59) 10/24/21 19:19 Sodium 134 mmol/L (136-145) L 10/25/21 04:33 Potassium 4.0 mmol/L (3.5-5.1) 10/25/21 04:33 Chloride 92 mmol/L (98-107) L 10/25/21 04:33 Carbon Dioxide 33 mmol/L (22-29) H 10/25/21 04:33 Anion Gap 13.0 (5-19) 10/25/21 04:33 BUN 12 mg/dL (8-23) 10/25/21 04:33 Creatinine 1.0 mg/dL (0.7-1.2) 10/25/21 04:33 GFR Calculation 76.0 mL/min (90-130) L 10/25/21 04:33 Glucose 256 mg/dL (65-115) H 10/25/21 04:33 POC Glucose 280 mg/dL (70-110) H 10/25/21 06:24 Estimat Average Glucose 220 10/24/21 14:24 Estimat Average Glucose Cancelled 10/24/21 14:24 Hemoglobin A1c 9.3 % (4.0-6.0) H 10/24/21 14:24 Hemoglobin A1c Cancelled 10/24/21 14:24 Calculated Osmolality 287 mOsm/kg (285-295) 10/25/21 04:33 Calcium 10.1 mg/dL (8.5-10.5) 10/25/21 04:33 Magnesium 1.6 mg/dL (1.7-2.3) L 10/25/21 04:33 Total Bilirubin 0.4 mg/dL (0.15-1.2) 10/25/21 04:33 AST 12 U/L (0-40) 10/25/21 04:33 ALT 20 U/L (0-41) 10/25/21 04:33 Alkaline Phosphatase 68 U/L (40-130) 10/25/21 04:33 Troponin T Baseline 11 ng/L (0-15) 10/24/21 14:24 Troponin T 120 Minute 10.26 ng/L (0-15) 10/24/21 16:30 Delta Troponin T -0.74 ABS# (0-10) L 10/24/21 16:30 Troponin T Hi Sens 6Hr 9.93 ng/L (0-15) 10/24/21 20:17 Troponin T Hi Sens 6Hr Delta -1.07 ng/L (0-12) L 10/24/21 20:17 NT-Pro-B Natriuret Pep 69 pg/mL (0-125) 10/24/21 14:24 NT-Pro-B Natriuret Pep 70 pg/mL (0-125) 10/24/21 14:24 NT-Pro-B Natriuret Pep Cancelled 10/24/21 14:24 Total Protein 6.9 g/dL (6.6-8.7) 10/25/21 04:33 Albumin 3.9 g/dL (3.5-5.2) 10/25/21 04:33 Globulin 3.0 g/dL (1.3-4.6) 10/25/21 04:33 Triglycerides 645 mg/dL (0-150) H 10/24/21 14:24 Cholesterol 373 mg/dL (0-200) H 10/24/21 14:24 LDL Cholesterol Direct 229 mg/dL (0-100) H 10/24/21 14:24 LDL Cholesterol, Calc Not Reportable 10/24/21 14:24 HDL Cholesterol 32 mg/dL (60-100) L 10/24/21 14:24 LDL/HDL Ratio Not Reportable 10/24/21 14:24 Cholesterol/HDL Ratio 11.66 mg/dL (1.0-5.00) H 10/24/21 14:24 TSH 4.20 uIU/mL (0.27-4.20) 10/24/21 14:24 A&P Assessment and plan (1) Atherosclerotic heart disease of [place] coronary artery with other forms of angina pectoris: Patient was found to have no ischemia, based on the perfusion scan. He has some conflicting stories on the nature of the chest pain. Apparently the nitroglycerin gives some relief of the pain. So I may go ahead and start him on isosorbide mononitrate 30 mg p.o. daily. He is advised to start getting up and move around to see have he is responding to the medication. If he continues to have chest pains, he may require a cardiac catheterization. The limitations of the Myocardial perfusion imaging findings are discussed with the patient and his in detail which he understood well Status: Acute (2) Benign essential HTN: Blood pressures are stage II. We may optimize the antihypertensive medications. Status: Acute (3) Peripheral arterial disease: Clinically seems to be stable. Status: Acute (4) Non-healing ulcer: Patient is getting daily wound dressing Status: Acute (5) T2DM (type 2 diabetes mellitus): Patient has hyperglycemia. The blood sugar seems to be getting slowly under control Status: Acute (6) Chest pain: As mentioned above Status: Acute Plan Patient may be watched on telemetry today with the medication changes. If he continues to have recurrence of chest pains, needs to Consider cardiac catheterization. Dr. Suarez will be covering for me over the weekend. Attestations Medical Necessity Statement*: Patient requires continued hospital stay for close monitoring and further management Coding Level of Care Code Acute Delicatessen Store Manager for g Fwd History Expanded Problem Focused Exam Expanded Problem Focused Medical Decision Making Moderate Complexity Diagnoses Atherosclerotic heart disease of [place] coronary artery with other forms of angina pectoris I25.118 Benign essential HTN I10 Peripheral arterial disease I73.9 Non-healing ulcer L98.499 T2DM (type 2 diabetes mellitus) E11.9 Chest pain R07.9
--- NOTE | 2021-10-25 07:38 | PC.NURSE ---
Pt off floor to stress test via wheelchair.
[2021-10-25] MEDS: regadenoson 0.4 Mg/5 ml Syringe IVP (08:22)
[2021-10-25] MEDS: ranolazine (12HR) 500 mg Tablet 1000 MG PO ×2 (09:53→20:24)
[2021-10-25] MEDS: pantoprazole DR 40 mg Tablet PO (09:53)
[2021-10-25] MEDS: carvedilol 25 mg Tablet PO ×2 (09:53→17:29)
[2021-10-25] MEDS: doxycycline 100 mg Tablet PO ×2 (09:53→17:29)
[2021-10-25] MEDS: gabapentin 300 mg Capsule 600 MG PO ×3 (09:53→20:22)
[2021-10-25] MEDS: rivaroxaban 10 mg Tablet 2.5 MG PO ×2 (09:54→20:24)
[2021-10-25] MEDS: methocarbamol 750 mg Tablet PO ×3 (09:54→20:23)
--- NOTE | 2021-10-25 09:56 | PC.CHAP ---
Pastoral Care Encounter/Spiritual Assessment Type of Contact [] Declined building materials sales attendant visit [] Patient/Family/Request visit [] Outpatient visit [] Follow-up visit [] Physician referral [] Code/Alert [xx] Routine visit [] Staff referral [] Actively dying [] Patient sleeping [] Family support [] [x] Out of room [] Palliative care [] [] Receiving care in room [] Pre-surgical visit [] Trauma [] Long length of stay [] ICU visit [] Other: Relational/Emotional Strength [] Patient feels connected with others/family/visitors/staff [] Distress [] Loneliness/isolation [] Abandonment Spirituality of Patient [] Person of Dunia [] Attends Hindu of their Dunia [] Believes in Prayer [] Reads Bible or Yazidism materials [] There are Spiritual issues to be addressed Flavoring Oil Filterer Interventions [] Prayer [] Active listening [] Non-anxious presence [] Spiritual/emotional support [] Crisis/trauma care [] Spiritual counseling [] Bereavement support [] Provided bereavement packet [] Provided Bible/devotional materials [] Provided toy/stuffed animal, coloring book to patient or family member [] Provided Communion [] Anointing/[place] [] Salvation [] Completed spiritual assessment [] Other: Impact on Illness or Injury [] Angry [] Fearful [] Anxious [] Often cries [] Exhaustion [] Unable to work [] Unable to attend church [] Unable to walk/stand [] Unable to read [] Unable to drive [] Unable to eat/drink [] Unable to sleep [] Unable to be with family [] Patient intubated [] Other: Summary Time spent with patient
[2021-10-25] MEDS: risperiDONE 1 mg Tablet PO ×2 (10:00→20:24)
[2021-10-25] MEDS: insulin lispro 100 unit/1 mL SUBCUT ×3 (10:18→17:29)
[2021-10-25] MEDS: nitroglycerin 0.4 mg sublingual Tablet SUBLINGUAL (10:24)
[2021-10-25] MEDS: insulin glargine 100 units/1 mL 30 UNIT SUBCUT (12:04)
[2021-10-25 12:21] LABS: Glucose Point of Care 371 mg/dL (70-110)
--- NOTE | 2021-10-25 13:01 | P.PN_ITS ---
Subjective Subjective: seen today. no acute events overnight. patient just got back from stress test. no longer having chest pain. Vitals/I&O/Wt Last Vital Signs Temp 97.7 F 10/25/21 12:00 Pulse 68 10/25/21 12:00 Resp 17 10/25/21 12:00 BP 152/81 10/25/21 12:00 Pulse Ox 94 10/25/21 12:00 O2 Del Method 10/25/21 12:00 FiO2 30 10/25/21 02:45 10/24/21 10/25/21 10/25/21 22:59 06:59 14:59 Intake Total 240 / 240 Balance 240 / 240 Weight last 48 hrs Weight 149.685 kg Weight 149.685 kg Physical Exam Narrative: Morbidly obese male EOMI, PERRLA Nonfocal neuro exam Abdomen soft nontender S1, S2 Grade 2/6 systolic murmur Left foot toes showing good signs of granulation no active signs of purulence Good healing tissue Dressing was changed No signs of edema of legs Currently doing well on room air at the bedside Data : 10/25/21 04:33 10/25/21 04:33 A&P Assessment and plan (1) T2DM (type 2 diabetes mellitus): Status: Acute (2) Non-healing ulcer: Status: Acute (3) Peripheral arterial disease: Status: Acute (4) Benign essential HTN: Status: Acute (5) Atherosclerotic heart disease of [place] coronary artery with other forms of angina pectoris: Status: Acute (6) Chest pain: Status: Acute Plan #Chest pain #DMT2, uncontrolled #Hyponatremia 2/2 hyperglycemia #Left toe blister #COPD #YESENIA #Hx of CAD s/p 13 stents - Request outside hospital records - Stress test today - Cardiology following - Optimize medications - A1c 9.3. Will adjust insulin - Continue wound care for left toe as per instructions from his wound care doc. Continue offloading boot - Continue bipap at night - Await recommendations from cardiology - Echo report pending. - check labs in AM. - Optimize blood glucose - Will continue home health service at discharge Full Code DVT PPX: Xarelto Consistent carb diet. Attestations Medical Necessity Statement*: Observation for chest pain. Will await results of stress test. Coding Level of Care Code Acute Check Processing Clerk for Chg Fwd Diagnoses T2DM (type 2 diabetes mellitus) E11.9 Non-healing ulcer L98.499 Peripheral arterial disease I73.9 Benign essential HTN I10 Atherosclerotic heart disease of [place] coronary artery with other forms of angina pectoris I25.118 Chest pain R07.9
[2021-10-25] MEDS: isosorbide mononitrate 20 mg Tablet 30 MG PO (14:15)
[2021-10-25 17:07] LABS: Glucose Point of Care 245 mg/dL (70-110)
--- NOTE | 2021-10-25 17:40 | PC.NURSE ---
Pt notified medical technical writer that he believes his chest pain/pressure comes on after he eats, patient states I already have a big belly so when it gets full it puts more pressure up on my chest and makes it hurt. Notified Dr. Aragon orders for GI cocktail x1.
[2021-10-25] MEDS: lidocaine 2% viscous 15 ML, aluminum-mag hydrox-simethicon 30 ML, sucralfate oral liq 1 GM PO (18:23)
--- NOTE | 2021-10-25 19:32 | NMCV_ITS ---
NM dl perf SPECT r/s* [id number] Norman Phan Age: 61 Gender: M : 1960 Exam Date: 10/25/2021 07:39 Ordering Phys: Christelle Donovan MD ([email or web address]) Technologist: LOUIS Frank Exam Location: [facility] Indications: CHEST PAIN STRESS TEST [facility] IMAGE PROTOCOL Rest/Stress 1 Lexiscan Day Radiopharmaceutical Dose (mCi) Administration Site Administered by Rest: Tc-99m 10.8 IV LOUIS York Sestamibi Stress:Tc-99m 33.0 IV L[place]IS [place] Sestamibi Rest: 25-Oct-2021 60 Discovery 630 Stress: 25-Oct-2021 30 Discovery 630 0.4mg Lexiscan. Images obtained in supine and prone position. SPECT RESULTS Technical Quality: Excellent Raw Data Analysis: Normal Image Corrections: No attenuation or motion correction applied Summed Stress Score: 0 Summed Rest Score: 1 Summed Difference Score: 0 PERFUSION FINDINGS Has small area of slightly decreased tracer uptake was noted in the mid inferolateral region, with no significant reversibility FUNCTIONAL RESULTS (calculated via Gated SPECT) Stress Image LV EF (%): 58 Stress EDV (mL):132 TID: 0.99 Stress ESV (mL):55 FUNCTIONAL FINDINGS: Segmental wall motion analysis revealing no gross wall motion normalities IMPRESSIONS 1. Myocardial perfusion imaging revealing a small area of persistent decreased tracer uptake in the mid inferolateral region, suggesting myocardial scarring versus attenuation artifact 2. Normal LV ejection fraction 58%. 3. LV wall motion analysis revealing no gross wall motion abnormalities 4. Mildly dilated LV cavity with an end-systolic volume of 55 ml Low probability for coronary ischemia, based on the above findings No similar previous studies are available for comparison Dr Christelle Donovan MD [facility] (Electronically Signed) Final Date: 25 October 2021 13:06 S
[2021-10-25] MEDS: trazodone 50 mg Tablet 100 MG PO (20:25)
[2021-10-25 20:32] LABS: Glucose Point of Care 271 mg/dL (70-110)
[2021-10-25] MEDS: insulin glargine 100 units/1 mL 35 UNIT SUBCUT (20:39)
[2021-10-26] VITALS (9 sets, daily range): BP systolic 113–161; BP diastolic 74–91; PULSE 56–77; RESP 15–18; TEMP 36.5–37.2; O2SAT 90–97
[2021-10-26] MEDS: oxyCODONE-APAP 10-325 mg Tablet 1 TAB PO (04:48)
[2021-10-26] MEDS: FUROsemide 40 mg Tablet 60 MG PO (05:27)
[2021-10-26] MEDS: aspirin 81 mg EC Tablet PO (05:27)
[2021-10-26] MEDS: magnesium oxide 400 mg tablet PO (05:27)
[2021-10-26] MEDS: fluoxetine 20 mg Capsule PO (05:27)
[2021-10-26] MEDS: NIFEdipine ER (24 hr) 30 mg Tablet PO (05:27)
[2021-10-26] MEDS: spironolactone 25 mg Tablet 12.5 MG PO (05:27)
[2021-10-26 06:22] LABS: Glucose Point of Care 266 mg/dL (70-110)
[2021-10-26] MEDS: risperiDONE 1 mg Tablet PO (08:15)
[2021-10-26] MEDS: insulin glargine 100 units/1 mL 35 UNIT SUBCUT (08:15)
[2021-10-26] MEDS: methocarbamol 750 mg Tablet PO (08:15)
[2021-10-26] MEDS: ranolazine (12HR) 500 mg Tablet 1000 MG PO (08:16)
[2021-10-26] MEDS: isosorbide mononitrate 20 mg Tablet 30 MG PO (08:16)
[2021-10-26] MEDS: gabapentin 300 mg Capsule 600 MG PO (08:16)
[2021-10-26] MEDS: pantoprazole DR 40 mg Tablet PO (08:16)
[2021-10-26] MEDS: carvedilol 25 mg Tablet PO (08:16)
[2021-10-26] MEDS: rivaroxaban 10 mg Tablet 2.5 MG PO (08:16)
[2021-10-26] MEDS: doxycycline 100 mg Tablet PO (08:16)
[2021-10-26] MEDS: insulin lispro 100 unit/1 mL SUBCUT ×2 (08:17→12:02)
[2021-10-26] MEDS: acetaminophen 325 mg Tablet 650 MG PO (09:54)
[2021-10-26 11:00] LABS: Glucose Point of Care 305 mg/dL (70-110)
--- NOTE | 2021-10-26 11:09 | P.PN_ITS ---
Subjective Subjective: He feels well this morning and is eager to leave Medications: Reviewed: Yes Vitals/I&O/Wt Last Vital Signs Temp 97.7 F 10/26/21 07:54 Pulse 77 10/26/21 09:41 Resp 18 10/26/21 09:41 BP 129/87 10/26/21 07:54 Pulse Ox 97 10/26/21 09:41 O2 Del Method 10/26/21 09:41 FiO2 30 10/26/21 02:00 10/25/21 10/26/21 10/26/21 22:59 06:59 14:59 Intake Total 480 / 960 150 / 1110 240 / 240 Balance 480 / 960 150 / 1110 240 / 240 Weight last 48 hrs Weight 324 lb 14.4 oz Weight 330 lb Weight 330 lb Physical Exam Narrative: GENERAL: obese man layin in bed in no acute distress HEENT: Extraocular movement intact. No pallor or icterus. NECK: central trachea, No JVD, No carotid bruit. CARDIOVASCULAR SYSTEM: S1-S2 regular. No S3 or S4 present. No murmur rubs or gallops. RESPIRATORY SYSTEM: Chest clear to auscultation. No wheezes rhonchi or rubs heard. No use of accessory muscles. ABDOMEN: Soft, nontender and nondistended. Normal bowel sounds present. EXTREMITIES: No cyanosis or edema. BELL SPINNER: Patient is alert oriented ?3. No focal neurological deficits. SKIN: Normal turgor and temperature. PSYCH: Normal insight and judgment. Data : 10/25/21 04:33 10/25/21 04:33 Other data: Lexiscan stress test (10/25/21) IMPRESSIONS ?1.? Myocardial perfusion imaging revealing a small area of persistent decreased ?tracer uptake in the mid inferolateral region, suggesting myocardial scarring ?versus attenuation artifact ?2.? Normal LV ejection fraction 58%. ?3.? LV wall motion analysis revealing no gross wall motion abnormalities ?4.? Mildly dilated LV cavity with an end-systolic volume of 55 ml ?Low probability for coronary ischemia, based on the above findings ?No similar previous studies are available for comparison TTE (10/24/21) ?CONCLUSIONS ?Normal left ventricular size and systolic function, EF 72 %. ?Mild left ventricular hypertrophy. ?No gross wall motion abnormalities.Thickened aortic valve. ?No gross abnormalities in the mitral and tricuspid valves ?Technically difficult study because of poor apical window. ?Echo contrast was used for? segmental wall motion analysis. ?Poor color-flow Doppler signals A&P Assessment and plan (1) Chest pain: Doing well on imdur -stable to be discharged home with f/u with his job interviewer Status: Acute (2) Atherosclerotic heart disease of [place] coronary artery with other forms of angina pectoris: Patient was found to have no ischemia, based on the perfusion scan. Status: Acute (3) Benign essential HTN: continue antihypertensive medications. Status: Acute (4) Peripheral arterial disease: Clinically seems to be stable. Status: Acute (5) Non-healing ulcer: Patient is getting daily wound dressing Status: Acute (6) T2DM (type 2 diabetes mellitus): Patient has hyperglycemia. The blood sugar seems to be getting slowly under control Status: Acute Plan Patient may be watched on telemetry today with the medication changes. If he continues to have recurrence of chest pains, needs to Consider cardiac catheterization. Dr. Suarez will be covering for me over the weekend. Attestations Medical Necessity Statement*: Stable to be discharged Time Spent in Patient Care: 16 - 35 minutes Coding Level of Care Code Acute Marketing Assistant Retail Division for g Fwd Diagnoses Chest pain R07.9 Atherosclerotic heart disease of [place] coronary artery with other forms of angina pectoris I25.118 Benign essential HTN I10 Peripheral arterial disease I73.9 Non-healing ulcer L98.499 T2DM (type 2 diabetes mellitus) E11.9
--- NOTE | 2021-10-26 14:14 | P.DS_ITS ---
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 Patient is stating that for last 3 weeks he has been experiencing chest pain which is very similar to the pain when he had stent placed, last stent was placed in December 2020 he has been compliant with his medication, non-smoker.? Patient is stating that his chest pain onset is random, he is describing his pain as burning sensation which gives him some chest heaviness sometimes.? He has not noticed any fever, nausea, vomiting but endorsing acid reflux.? Today they were dropping off his friend in [place] when he started complaining of chest pain to his in the car and his brought him to the ER. At the time of my evaluation patient is stating that he still has a pain however when I put some pressure around his sternum area it was reproducible His left toe has been recently debrided by the wound care, he has been given offloading boot to ambulate, toe seems to be showing good signs of granulation no signs of active bleeding or purulence no sign of cellulitis he has been taking doxycycline for last 4 days Hemodynamically stable however he is hypertensive heart rate is below 80 He is currently doing well on room air Considering history of coronary artery disease and vague symptoms Dr. Donovan was consulted for further evaluation we have requested records from his [facility] I will give him GI cocktail and increase the dose of Coreg He will need optimization of antianginal He uses BiPAP at night Non-smoker, nonalcoholic Patient is not a good historian, is stating that he has been put on rivaroxaban because of his significant coronary disease he never had any diagnosis of atrial flutter or atrial fibrillation DVT or PE Hospital Course Hospital Course Patient was admitted for chest pain. It was reproducible chest pain. However due to his extensive history of cardiac management in the past cardiology was consulted. His professor of philosophy is at [facility]. He also recently had left toe debridement done for which she is following up with wound care clinic outpatient. He also has an offloading boot to ambulate. There is good signs of granulation tissue and no sign of active bleeding purulence or cellulitis. He has been on doxycycline as an outpatient. Dressing changes have been continued throughout hospital stay. Patient was evaluated by cardiology and a stress test was done. Stress test does not show any evidence of ischemia. Patient was started on Imdur which he tolerated well. Echo was also reviewed by cardiology team. Patient has been chest pain-free after stress test and is doing well. His pain resolved with GI cocktail. Patient will be discharged home in stable condition to follow-up with his primary care within 4 to 7 days of discharge and to follow-up with his professor of philosophy. He is also been given a referral to local professor of philosophy here if he chooses to follow-up in [place]. Discussed with patient and and they demonstrate understanding. Patient will be discharged home in stable condition. Vital signs stable at time of discharge. His blood glucose regimen was adjusted at time of discharge as well. During hospital stay his Coreg was increased to 25 twice daily. Metoprolol was stopped. Physical Exam Narrative: General: Alert oriented x3, patient seen sitting up in bed appearing comfortable at this time, at bedside. HEENT: Normocephalic, atraumatic, EOMI, breathing normally. Cardio: Regular rate rhythm, normal S1-S2, Respiratory: Good bilateral air entry, no wheezes no rhonchi appreciated GI: Abdomen soft, nontender, nondistended, bowel sounds +, obese rounded abdomen. Behavior: Appropriate Extremities: No bilateral lower extremity edema present. Left foot covered with Band-Aid. Dressing changed by nurse. Discharge Data Studies Completed and Pending Completed Studies During Hospitalization Category Date Time Status Cardiac Stress Test MIBI [Sestamibi Stress Test Request Exams 10/25/21 06:43 C ompleted ] Routine XR chest 1V portable [id number] Stat Exams 10/24/21 13:51 Completed NM dl perf SPECT r/s* [id number] Routine Nuc Med 10/25/21 19:32 Completed CV. echo wo/w contrast [id number] Routine Ultrasound 10/24/21 18:56 Completed Pending at discharge Category Date Time Status Cardiac Stress Test MIBI [Sestamibi Stress Test Request Exams 10/24/21 19:31 Stop Req ] Routine Radiology Impressions Chest X-Ray 10/24/21 13:51 IMPRESSION: 1. Cardiac enlargement. 2. Bibasal plaque atelectasis noted. Laboratory Results WBC 8.0 10^3/uL (4.0-10.0) 10/25/21 04:33 RBC 4.61 10^6/uL (4.1-5.3) 10/25/21 04:33 Hgb 13.9 g/dL (11.7-16.6) 10/25/21 04:33 Hct 41.2 % (42.0-52.0) L 10/25/21 04:33 MCV 89.4 fl (80-94) 10/25/21 04:33 MCH 30.2 pg (28.0-34.0) 10/25/21 04:33 MCHC 33.7 g/dL (30.0-36.0) 10/25/21 04:33 RDW 12.2 % (12.1-15.1) 10/25/21 04:33 Plt Count 230 10^3/cmm (130-400) 10/25/21 04:33 MPV 8.8 fL (7.4-10.4) 10/25/21 04:33 Neut % (Auto) 68.3 % 10/25/21 04:33 Lymph % (Auto) 19.9 % 10/25/21 04:33 Bollinger % (Auto) 8.3 % 10/25/21 04:33 Eos % (Auto) 2.3 % 10/25/21 04:33 Baso % (Auto) 0.9 % 10/25/21 04:33 Neut # (Auto) 5.48 10^3/uL (1.8-7.7) 10/25/21 04:33 Lymph # (Auto) 1.6 10^3/uL (0.8-4.8) 10/25/21 04:33 Bollinger # (Auto) 0.7 10^3/uL (0.2-0.9) 10/25/21 04:33 Eos # (Auto) 0.2 10^3/uL (0.0-0.8) 10/25/21 04:33 Baso # (Auto) 0.1 10^3/uL (0.0-0.1) 10/25/21 04:33 Nucleated RBC % (auto) 0 % 10/25/21 04:33 Nucleated RBCs # 0.0 /100WBC 10/25/21 04:33 PT 13.90 SECONDS (12.1-14.9) 10/24/21 14:24 INR 1.04 (0.8-1.2) 10/24/21 14:24 APTT 36.6 SECONDS (23.9-36.7) 10/24/21 14:24 D-Dimer 0.45 ug/mIFEU (0-0.59) 10/24/21 19:19 Sodium 134 mmol/L (136-145) L 10/25/21 04:33 Potassium 4.0 mmol/L (3.5-5.1) 10/25/21 04:33 Chloride 92 mmol/L (98-107) L 10/25/21 04:33 Carbon Dioxide 33 mmol/L (22-29) H 10/25/21 04:33 Anion Gap 13.0 (5-19) 10/25/21 04:33 BUN 12 mg/dL (8-23) 10/25/21 04:33 Creatinine 1.0 mg/dL (0.7-1.2) 10/25/21 04:33 GFR Calculation 76.0 mL/min (90-130) L 10/25/21 04:33 Glucose 256 mg/dL (65-115) H 10/25/21 04:33 POC Glucose 305 mg/dL (70-110) H 10/26/21 10:50 Estimat Average Glucose 220 10/24/21 14:24 Estimat Average Glucose Cancelled 10/24/21 14:24 Hemoglobin A1c 9.3 % (4.0-6.0) H 10/24/21 14:24 Hemoglobin A1c Cancelled 10/24/21 14:24 Calculated Osmolality 287 mOsm/kg (285-295) 10/25/21 04:33 Calcium 10.1 mg/dL (8.5-10.5) 10/25/21 04:33 Magnesium 1.6 mg/dL (1.7-2.3) L 10/25/21 04:33 Total Bilirubin 0.4 mg/dL (0.15-1.2) 10/25/21 04:33 AST 12 U/L (0-40) 10/25/21 04:33 ALT 20 U/L (0-41) 10/25/21 04:33 Alkaline Phosphatase 68 U/L (40-130) 10/25/21 04:33 Troponin T Baseline 11 ng/L (0-15) 10/24/21 14:24 Troponin T 120 Minute 10.26 ng/L (0-15) 10/24/21 16:30 Delta Troponin T -0.74 ABS# (0-10) L 10/24/21 16:30 Troponin T Hi Sens 6Hr 9.93 ng/L (0-15) 10/24/21 20:17 Troponin T Hi Sens 6Hr Delta -1.07 ng/L (0-12) L 10/24/21 20:17 NT-Pro-B Natriuret Pep 69 pg/mL (0-125) 10/24/21 14:24 NT-Pro-B Natriuret Pep 70 pg/mL (0-125) 10/24/21 14:24 NT-Pro-B Natriuret Pep Cancelled 10/24/21 14:24 Total Protein 6.9 g/dL (6.6-8.7) 10/25/21 04:33 Albumin 3.9 g/dL (3.5-5.2) 10/25/21 04:33 Globulin 3.0 g/dL (1.3-4.6) 10/25/21 04:33 Triglycerides 645 mg/dL (0-150) H 10/24/21 14:24 Cholesterol 373 mg/dL (0-200) H 10/24/21 14:24 LDL Cholesterol Direct 229 mg/dL (0-100) H 10/24/21 14:24 LDL Cholesterol, Calc Not Reportable 10/24/21 14:24 HDL Cholesterol 32 mg/dL (60-100) L 10/24/21 14:24 LDL/HDL Ratio Not Reportable 10/24/21 14:24 Cholesterol/HDL Ratio 11.66 mg/dL (1.0-5.00) H 10/24/21 14:24 TSH 4.20 uIU/mL (0.27-4.20) 10/24/21 14:24 Vitals Last Vital Signs Temp 99.0 F 10/26/21 11:35 Pulse 66 10/26/21 11:35 Resp 17 10/26/21 11:35 BP 113/74 10/26/21 11:35 Pulse Ox 92 10/26/21 11:35 O2 Del Method 10/26/21 11:35 FiO2 30 10/26/21 02:00 Discharge Plan Discharge Patient Disposition: Home Condition: Stable Prescriptions: New carvedilol 25 mg Tablet 25 mg PO BID 30 Days Qty: 60 0RF isosorbide mononitrate 20 mg Tablet 30 mg PO DAILY 30 Days Qty: 30 0RF Continued furosemide 40 mg tablet 120 mg PO QAM Advair Diskus 250-50 mcg/dose Blister With Device 1 inh INHALATION BID gabapentin 600 mg tablet 600 mg PO TID doxycycline hyclate 100 mg capsule 100 mg PO BID trazodone 50 mg tablet 100 mg PO BEDTIME glipizide 10 mg tablet 10 mg PO QAM nifedipine 30 mg tablet extended release 30 mg PO QAM Aspir-81 81 mg Tablet,Delayed Release (Dr/Ec) 81 mg PO QAM spironolactone 25 mg tablet 12.5 mg PO QAM methocarbamol 750 mg tablet 750 mg PO TID oxycodone-acetaminophen 10-325 mg tablet 1 tab PO TID PRN (Reason: Pain) dicyclomine 20 mg tablet 20 mg PO BID metformin 1,000 mg tablet 1,000 mg PO BID hydrochlorothiazide 25 mg tablet 25 mg PO QAM fluoxetine 20 mg capsule 20 mg PO QAM risperidone 1 mg tablet See Rx Instructions .ROUTE .COMPLEX Rx Instructions: 1MG PO QAM AND 2MG PO BEDTIME insulin glargine [Lantus Solostar U-100 Insulin] 100 unit/mL (3 mL) insulin pen See Rx Instructions .ROUTE .COMPLEX Rx Instructions: 37 unit subcutaneously TID PLUS SLIDING SCALE ranolazine 1,000 mg tablet extended release 12 hr 1,000 mg PO BID potassium gluconate 595 mg (99 mg) Tablet 595 mg PO DAILY PRN (Reason: UNKNOWN) Xarelto 2.5 mg tablet 2.5 mg PO BID magnesium oxide 400 mg magnesium Tablet 400 mg PO QAM Discontinued carvedilol 3.125 mg tablet 3.125 mg PO BID Discharge Orders: Discharge Order (Routine); Ordered 10/26/21 Ordered By: Cony Aragon Referrals: Christelle Donovan MD [Physician] - 1 month Bianca Grant FNP [Nurse Practitioner] - Discharge Diet: Cardiac Discharge Activity: Resume usual activity Patient Instructions: Opioid Safety Activity Restrictions/Additional Instructions: Please follow-up with primary care doctor within 4 to 7 days of discharge. Please follow-up with cardiology as directed. Please return to the ER should he have any more chest pain, shortness of breath, difficulty breathing. Please follow-up with your wound care clinic for left toe wound. Continue dressing changes as directed. 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
--- NOTE | 2021-10-26 15:03 | PC.NURSE ---
Reviewed patient discharge instructions with patient and at bedside, patient and verbalize understanding, all questions answered.
== END 2021-10-26 15:03 | disposition home health service (06) ==
LOC: ER 14:25 → MEDSURG 16:38
PROVIDERS: Emergency Medicine; Internal Medicine; Admitting Provider Internal Medicine; Emergency Provider Emergency Medicine; Visit Provider Internal Medicine
DX: I25.118 Atherosclerotic heart disease of native coronary artery with other forms of angina pectoris (principal); R07.9 Chest pain, unspecified; I16.0 Hypertensive urgency; E87.1 Hypo-osmolality and hyponatremia; I10 Essential (primary) hypertension; E78.5 Hyperlipidemia, unspecified; I25.2 Old myocardial infarction; J44.9 Chronic obstructive pulmonary disease, unspecified; E11.65 Type 2 diabetes mellitus with hyperglycemia; E11.51 Type 2 diabetes mellitus with diabetic peripheral angiopathy without gangrene; E11.621 Type 2 diabetes mellitus with foot ulcer; L97.529 Non-pressure chronic ulcer of other part of left foot with unspecified severity; E66.01 Morbid (severe) obesity due to excess calories; Z68.41 Body mass index [BMI] 40.0-44.9, adult; F17.200 Nicotine dependence, unspecified, uncomplicated; Z79.82 Long term (current) use of aspirin; Z79.4 Long term (current) use of insulin; Z79.84 Long term (current) use of oral hypoglycemic drugs; Z79.51 Long term (current) use of inhaled steroids; Z95.5 Presence of coronary angioplasty implant and graft; Z89.422 Acquired absence of other left toe(s); Z82.49 Family history of ischemic heart disease and other diseases of the circulatory system
CPT/HCPCS: 36415; 36416; 71045; 78452; 80053; 80061; 82962; 83036; 83721; 83735; 83880; 84443; 84484; 85025; 85378; 85610; 85730; 93005; 93017; 94660; 94664; 96372; 96374; 99285; A9500; C8929; G0378; J1815; J2270; J2785; Q9956

== ENCOUNTER → 2023-03-12 11:18 | Outpatient (BNVA) | payer MEDICARE, SELFPAY | PROVIDERS: Visit Provider Podiatrist Foot & Ankle Surgery | DX: L03.115 Cellulitis of right lower limb; S91.331D Puncture wound without foreign body, right foot, subsequent encounter; W45.0XXD Nail entering through skin, subsequent encounter; L08.9 Local infection of the skin and subcutaneous tissue, unspecified; E11.69 Type 2 diabetes mellitus with other specified complication; Z79.84 Long term (current) use of oral hypoglycemic drugs; Z79.4 Long term (current) use of insulin | CPT/HCPCS: 36415; 73630; 85025; 85651; 86140; 99203 ==

== ENCOUNTER 2023-03-16 09:23 | Emergency (ER) | payer MEDICARE, MEDICAID, SELFPAY ==
[2023-03-16 09:52] VITALS: BP 150/103; PULSE 87; RESP 18; TEMP 36.7; O2SAT 91; BMI 41.8
--- NOTE | 2023-03-16 10:00 | XR_ITS ---
WS: [id number] XR foot RT min 3V* 17110 REASON FOR EXAM: trauma FINDINGS: No fracture or other focal bone lesion. Subluxations at the MTP and PIP joints. No change compared to 03/12/2023. IMPRESSION: No acute abnormality.
[2023-03-16 10:25] LABS: Basophils # 0.1 10^3/uL (0.0-0.1); Basophils % 0.6 %; Eosinophils # 0.3 10^3/uL (0.0-0.8); Eosinophils % 3.2 %; Hematocrit 41.6 % (37-53); Lymphocytes # 1.9 10^3/uL (0.8-4.8); Lymphocytes % 22.5 %; Mean Corpuscular HGB Conc 33.7 g/dL (30-55); Mean Corpuscular Hemoglobin 28.5 pg (27-33); Mean Corpuscular Volume 84.7 fl (82-101); Mean Platelet Volume 8.8 fL (7.4-10.4); Monocytes # 0.7 10^3/uL (0.2-0.9); Monocytes % 8.3 %; Neutrophils # 5.47 10^3/uL (1.8-7.7); Neutrophils % 65.2 %; Nucleated Red Blood Cells % 0 %; Platelet Count 241 10^3/cmm (157-399); Red Blood Count 4.91 10^6/uL (3.85-5.65); Red Cell Distribution Width 12.4 % (12.1-15.1)
--- NOTE | 2023-03-16 10:28 | W.ED.EXTPRO ---
HPI - Extremity Problem General: Chief complaint: Extremity Problem,Nontraumatic Stated complaint: right foot pain Time Seen by Provider: 03/16/23 10:00 Source: patient Mode of arrival: wheelchair Limitations: no limitations History of Present Illness: Patient is a 62-year-old male who presents to ED today for evaluation of a right foot infection that he has been battling over the past few weeks. Patient reported he was instructed to come to the ED per Dr. Lindo for admission. History of foot is that he stepped on a nail approximately 4 weeks ago. He has been on multiple rounds of antibiotics and has been being managed by Dr. Lindo on an outpatient basis. They were reportedly supposed to come to the ED on 03/12 but there were no beds available. Patient states he just started another round of antibiotics. He does state the redness to the foot has improved since starting the antibiotics. No fevers. He states they had x-rays and blood work performed by Dr. Lindo on their last clinic visit. MD Complaint: extremity pain and extremity swelling Onset (ago): week(s) Pain Consistency: constant Location: right and lower extremity Radiation: none Relieving factors: other (antibiotics) Exacerbating factors: nothing Associated symptoms: Reports no associated symptoms; Deny fever(s) Review of Systems Const: Denies: fever(s), chills, body aches, fatigue or malaise GI: Denies: nausea or vomiting Musc: Reports: extremity pain (R foot) and extremity swelling (R foot) Neuro: Denies: numbness in extremities, weakness in extremities or sensory changes [facility] PFSH: Medical History Psychiatric care Amputation toe COPD (chronic obstructive pulmonary disease) Hypertension Diabetic foot infection Diabetes STEMI (ST elevation myocardial infarction) CAD (coronary artery disease) Surgical History Stented coronary artery Family History Other Diabetes Social History Smoking and tobacco/nicotine status: current every day tobacco/nicotine user Alcohol intake: never Substance/Drug Use: never Physical Exam Const: COMMON NORMALS: no acute distress, patient oriented x3, no limitations, alert and well nourished NUTRITIONAL APPEARANCE: obese ORIENTATION/CONSCIOUSNESS: Yes awake, Yes oriented to person, Yes oriented to place and Yes oriented to time Resp: COMMON NORMALS: normal respiratory effort and clear to auscultation bilaterally AUSCULTATION: clear to auscultation bilaterally Cardio: COMMON NORMALS: regular rate and regular rhythm RATE: regular rate RHYTHM: regular rhythm Extremity: COMMON NORMALS: capillary refill normal and no calf tenderness GENERAL: Yes normal exam except as noted RIGHT LOWER EXTREMITY: Yes foot & digits (chronic subluxations/deviations to digits) Right foot and digits: Yes inspection (mild generalized edema; minimal erythema/warmth) and Yes neurovascular exam (normal) Neuro: COMMON NORMALS: patient oriented x3, moves all extremities, no focal motor deficits and no sensory deficits noted SENSORIUM/ORIENTATION: Yes alert, Yes oriented to person, Yes oriented to place and Yes oriented to time Course Vital Signs: Vital signs: Vital Signs Temperature 98.1 F 03/16/23 09:52 Pulse Rate 87 03/16/23 09:52 Respiratory Rate 18 03/16/23 09:52 Blood Pressure 150/103 03/16/23 09:52 Pulse Oximetry 91 03/16/23 09:52 Oxygen Delivery Me thod Room Air 03/16/23 09:52 MDM - Extremity (Nontraumatic) Medical Decision Making ED workup initiated as patient report was that he was to be admitted. I spoke to Dr. Lindo and was able to send him images of patient's foot currently. Erythema has improved quite a bit since he last saw patient. Dr. Lindo indicated there was some miscommunication and plan for patient is he does not require admission. He reportedly had a clinic appointment today that had to be rescheduled because of weather. Dr. Lindo stated his office will reach out to him this week for re-schedule. Patient is not tachycardic or febrile. He has a normal white count. Inflammatory markers are minimally elevated. Instruction will be for him to continue his current antibiotic regimen and follow-up with Dr. Lindo. Medical Records I reviewed the patient's medical records. Lab Data I reviewed the patient's lab results. 03/16/23 10:09 03/16/23 10:09 Laboratory Results WBC 8.40 10^3/uL (3.29-11.43) 03/16/23 10:09 RBC 4.91 10^6/uL (3.85-5.65) 03/16/23 10:09 Hgb 14.00 g/dL (11.27-16.99) 03/16/23 10:09 Hct 41.6 % (37-53) 03/16/23 10:09 MCV 84.7 fl (82-101) 03/16/23 10:09 MCH 28.5 pg (27-33) 03/16/23 10:09 MCHC 33.7 g/dL (30-55) 03/16/23 10:09 RDW 12.4 % (12.1-15.1) 03/16/23 10:09 Plt Count 241 10^3/cmm (157-399) 03/16/23 10:09 MPV 8.8 fL (7.4-10.4) 03/16/23 10:09 Neut % (Auto) 65.2 % 03/16/23 10:09 Lymph % (Auto) 22.5 % 03/16/23 10:09 Meade % (Auto) 8.3 % 03/16/23 10:09 Eos % (Auto) 3.2 % 03/16/23 10:09 Baso % (Auto) 0.6 % 03/16/23 10:09 Neut # (Auto) 5.47 10^3/uL (1.8-7.7) 03/16/23 10:09 Lymph # (Auto) 1.9 10^3/uL (0.8-4.8) 03/16/23 10:09 Meade # (Auto) 0.7 10^3/uL (0.2-0.9) 03/16/23 10:09 Eos # (Auto) 0.3 10^3/uL (0.0-0.8) 03/16/23 10:09 Baso # (Auto) 0.1 10^3/uL (0.0-0.1) 03/16/23 10:09 Nucleated RBC % (auto) 0 % 03/16/23 10:09 Nucleated RBCs # 0.0 /100WBC 03/16/23 10:09 ESR 50 mm/hr (0-10) H 03/16/23 10:09 Sodium 134 mmol/L (136-145) L 03/16/23 10:09 Potassium 4.3 mmol/L (3.5-5.1) 03/16/23 10:09 Chloride 96 mmol/L (98-107) L 03/16/23 10:09 Carbon Dioxide 28 mmol/L (22-29) 03/16/23 10:09 Anion Gap 14.3 (5-19) 03/16/23 10:09 BUN 24 mg/dL (8-23) H 03/16/23 10:09 Creatinine 1.1 mg/dL (0.7-1.2) 03/16/23 10:09 GFR Calculation 67.8 mL/min (90-130) L 03/16/23 10:09 Glucose 217 mg/dL (65-115) H 03/16/23 10:09 Calculated Osmolality 289 mOsm/kg (285-295) 03/16/23 10:09 Lactic Acid 1.4 mmol/L (0.5-2.2) 03/16/23 10:09 Calcium 9.2 mg/dL (8.5-10.5) 03/16/23 10:09 Total Bilirubin 0.2 mg/dL (0.15-1.2) 03/16/23 10:09 AST 19 U/L (0-40) 03/16/23 10:09 ALT 25 U/L (0-41) 03/16/23 10:09 Alkaline Phosphatase 70 U/L (40-130) 03/16/23 10:09 C-Reactive Protein 9.4 mg/L (0.0-4.9) H 03/16/23 10:09 Total Protein 6.9 g/dL (6.6-8.7) 03/16/23 10:09 Albumin 3.6 g/dL (3.5-5.2) 03/16/23 10:09 Globulin 3.3 g/dL (1.3-4.6) 03/16/23 10:09 All radiology interpretation(s) finalized by discharge Discharge Plan Discharge Patient Disposition: Home Clinical Impression: Infected puncture wound of plantar aspect of foot Qualifiers: Encounter type: subsequent encounter Laterality: right Qualified Code(s): S91.331D - Puncture wound without foreign body, right foot, subsequent encounter Condition: Stable Prescriptions: No Action clindamycin HCl 300 mg capsule 300 mg PO Q8H Qty: 21 0RF ciprofloxacin HCl 500 mg tablet 500 mg PO Q12H Qty: 14 0RF furosemide 40 mg tablet 120 mg PO QAM Advair Diskus 250-50 mcg/dose Blister With Device 1 inh INHALATION BID gabapentin 600 mg tablet 600 mg PO TID trazodone 50 mg tablet 100 mg PO BEDTIME glipizide 10 mg tablet 10 mg PO QAM nifedipine 30 mg tablet extended release 30 mg PO QAM aspirin 81 mg Tablet,Delayed Release (Dr/Ec) 81 mg PO QAM spironolactone 25 mg tablet 12.5 mg PO QAM methocarbamol 750 mg tablet 750 mg PO TID oxycodone-acetaminophen 10-325 mg tablet 1 tab PO TID PRN (Reason: Pain) dicyclomine 20 mg tablet 20 mg PO BID metformin 1,000 mg tablet 1,000 mg PO BID hydrochlorothiazide 25 mg tablet 25 mg PO QAM fluoxetine 20 mg capsule 20 mg PO QAM risperidone 1 mg tablet See Rx Instructions .ROUTE .COMPLEX Rx Instructions: 1MG PO QAM AND 2MG PO BEDTIME ranolazine 1,000 mg tablet extended release 12 hr 1,000 mg PO BID potassium gluconate 595 mg (99 mg) Tablet 595 mg PO DAILY PRN (Reason: UNKNOWN) Xarelto 2.5 mg tablet 2.5 mg PO BID magnesium oxide 400 mg magnesium Tablet 400 mg PO QAM Lantus Solostar U-100 Insulin 100 unit/mL (3 mL) insulin pen See Rx Instructions .ROUTE .COMPLEX Qty: 15 0RF Rx Instructions: 45 unit subcutaneously TID PLUS SLIDING SCALE Discharge Orders: Discharge ED (Routine); Ordered 03/16/23 Ordered By: Amarilis Varma Referrals: Archie Lackey MD [Primary Care Provider] - Activity Restrictions/Additional Instructions: Continue current antibiotic regimen. Dr. Lindo indicated that their office will be reaching out to you later this week to set you up with your follow-up appointment. You may return to the emergency department for worsening redness, redness spreading up your leg, fevers greater than 100.4, or any other concerns you may have. 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 Coding Level of Care Code ED Rehab Spec for Mati Gallardo
[2023-03-16 10:48] LABS: Alanine Aminotransferase 25 U/L (0-41); Albumin Level 3.6 g/dL (3.5-5.2); Alkaline Phosphatase 70 U/L (40-130); Anion Gap 14.3 (5-19); Aspartate Amino Transferase 19 U/L (0-40); Blood Urea Nitrogen 24 mg/dL (8-23); C Reactive Protein 9.4 mg/L (0.0-4.9); Calcium 9.2 mg/dL (8.5-10.5); Carbon Dioxide 28 mmol/L (22-29); Chloride 96 mmol/L (98-107); Globulin 3.3 g/dL (1.3-4.6); Glomerular Filtration Rate 67.8 mL/min (90-130); Glucose 217 mg/dL (65-115); Osmolality Calculated 289 mOsm/kg (285-295); Potassium 4.3 mmol/L (3.5-5.1); Sodium 134 mmol/L (136-145); Total Bilirubin 0.2 mg/dL (0.15-1.2); Total Protein 6.9 g/dL (6.6-8.7)
[2023-03-16 10:49] LABS: Lactic Sepsis W/Reflex 1.4 mmol/L (0.5-2.2)
[2023-03-16 10:50] LABS: Erythrocyte Sedimentation Rate 50 mm/hr (0-10)
--- NOTE | 2023-03-16 11:36 | DCPLANNER ---
Message was sent to Dr. Lindo office on 03/16/23 at [id number]. [facility] to contact patient.
== END 2023-03-16 10:56 | disposition home or self-care (01) ==
PROVIDERS: Family Medicine; Emergency Provider Physician Assistant; PCP Family Medicine
DX: S91.331A Puncture wound without foreign body, right foot, initial encounter (principal); L08.9 Local infection of the skin and subcutaneous tissue, unspecified; Z79.82 Long term (current) use of aspirin; Z79.84 Long term (current) use of oral hypoglycemic drugs; Z79.4 Long term (current) use of insulin; J44.9 Chronic obstructive pulmonary disease, unspecified; I10 Essential (primary) hypertension; E11.9 Type 2 diabetes mellitus without complications; I25.2 Old myocardial infarction; I25.10 Atherosclerotic heart disease of native coronary artery without angina pectoris; Z72.0 Tobacco use; W45.0XXA Nail entering through skin, initial encounter
CPT/HCPCS: 36415; 73630; 80053; 83605; 85025; 85651; 86140; 87040; 99284

== ENCOUNTER → 2023-03-19 07:52 | Outpatient (BNVA) | payer MEDICARE, MEDICAID, SELFPAY | PROVIDERS: PCP Family Medicine; Visit Provider Podiatrist Foot & Ankle Surgery | DX: S91.331D Puncture wound without foreign body, right foot, subsequent encounter (principal); L08.9 Local infection of the skin and subcutaneous tissue, unspecified; L03.90 Cellulitis, unspecified; X58.XXXD Exposure to other specified factors, subsequent encounter | CPT/HCPCS: 99213 ==

== ENCOUNTER 2023-03-20 06:43 | Outpatient (CLI) | payer MEDICARE, MEDICAID, SELFPAY ==
--- NOTE | 2023-03-20 07:15 | MR_ITS ---
WS: [id number] MRI RIGHT FOOT WITHOUT CONTRAST. COMPARISON: Radiographs 03/16/2023 and 03/12/2023 Multiplanar, multisequence imaging is performed without contrast. History: Stepped on nail 2 weeks ago. Continued infection pain. This study was performed without IV contrast. There is a large amount of soft tissue edema consistent with cellulitis throughout nearly the entire foot but greatest surrounding the metatarsals in the midfoot. There is focal fluid remote from the in jury site surrounding the flexor hallucis longus tendon posterior to the talus. There is additional i ncreased fluid within the flexor hallucis longus and the flexor digitorum longus tendons in the midfo ot. There is a focal ill formed fluid collection measuring 8 x 13 mm along the dorsal surface of the foot at the level of the third distal metatarsal. There is abnormal signal consistent with edema involving the third distal metatarsal and the metatars al head. This is at the site of the greatest soft tissue edema in the focal complex fluid collection. There is surrounding edema. No additional bone signal abnormality. Hammertoe deformities. IMPRESSION: 1. Large amount of cellulitis surrounding the majority of the foot. Greatest distribution around the metatarsals. There is a focal ill-defined collection measuring 8 x 13 mm on the dorsal surface of th e foot at the level of the third distal metatarsal. Cannot confirm abscess as no contrast was given b ut this is suspicious for developing infection. 2. Marrow edema involving the very distal third metatarsal and the entire metatarsal head. Highly vizcaino spicious for osteomyelitis taking into consideration the recent history. Cannot evaluate for enhancem ent without IV contrast. 3. Small amount of fluid within the tendon sheath of the flexor hallucis longus and the flexor digit orum longus tendons in the midfoot. Suspect tenosynovitis.
== END 2023-03-20 06:44 | disposition home or self-care (01) ==
LOC: RAD 06:44
PROVIDERS: PCP Family Medicine; Visit Provider Podiatrist Foot & Ankle Surgery
DX: S91.331D Puncture wound without foreign body, right foot, subsequent encounter (principal); L08.9 Local infection of the skin and subcutaneous tissue, unspecified; X58.XXXD Exposure to other specified factors, subsequent encounter
CPT/HCPCS: 73718; 99214

== ENCOUNTER 2023-03-26 09:15 | Day surgery (SDC) | payer MEDICARE, SELFPAY ==
[2023-03-26] VITALS (9 sets, daily range): BP systolic 120–159; BP diastolic 73–91; PULSE 51–61; RESP 16–18; TEMP 36.1–36.2; O2SAT 92–100
--- NOTE | 2023-03-26 10:35 | ANES.PREANE2 ---
Pre-Anesthetic Assessment Height/Weight: Height 1.91 m Weight 151.953 kg Temp Pulse Resp BP Pulse Ox O2 Del Method 97 F L 61 18 159/81 92 Room Air 03/26/23 09:43 03/26/23 09:43 03/26/23 09:43 03/26/23 09:43 03/26/23 09:43 03/26/23 09:43 Preop Diagnosis: Right foot abscess Operation Date: 03/26/23 12:00 Proposed Procedures p Incision And Drainage(right Foot)(Right) - Luis Eduardo Lindo DPM Familial anesthetic complications: None Was Beta Rosy taken within 24 hours: N/A Was Clonidine taken within 24 hours: N/A Last intake: > 8 hrs Social No alcohol and No tobacco Exam alert, oriented x 3, clear to auscultation bilaterally and regular rate & rhythm Airway Mallampati: Class IV Dentition: false Pulmonary Asthma and Chronic Obstructive Pulmonary Disease (4 L NC continously) CV/HEM Coronary Artery Disease, Myocardial Infarction (13 stents) and Peripheral Vascular Disease Stress test 2021 CONCLUSION: 1. No significant EKG changes with the LexiScan infusion 2. No LexiScan induced chest pain or cardiac arrhythmia 3. Normal blood pressure and heart rate response 4. Sestamibi/sestamibi perfusion scan pending; see separate report. perfusion scan 2021 IMPRESSIONS 1. Myocardial perfusion imaging revealing a small area of persistent decreased tracer uptake in the mid inferolateral region, suggesting myocardial scarring versus attenuation artifact 2. Normal LV ejection fraction 58%. 3. LV wall motion analysis revealing no gross wall motion abnormalities 4. Mildly dilated LV cavity with an end-systolic volume of 55 ml Low probability for coronary ischemia, based on the above findings No similar previous studies are available for comparison Echo 2021 CONCLUSIONS Normal left ventricular size and systolic function, EF 72 %. Mild left ventricular hypertrophy. No gross wall motion abnormalities.Thickened aortic valve. No gross abnormalities in the mitral and tricuspid valves Technically difficult study because of poor apical window. Echo contrast was used for segmental wall motion analysis. Poor color-flow Doppler signals Metabolic Diabetes Mellitus and Morbid Obesity Neuropsych Transient Ischemic Attack Blind in R eye Anesthetic Plan ASA status: 4 Anesthesia: MAC Risk of > 500 ml blood loss (7ml/kg in children): No Medications/Allergies Home Medications Medication Instructions Recorded Confirmed Last Taken Type aspirin 81 mg tablet,delayed 81 mg PO QAM 10/24/21 03/26/23 03/25/23 History release fluoxetine 20 mg capsule 20 mg PO QAM 10/24/21 03/26/23 03/25/23 History fluticasone 250 mcg-salmeterol 50 1 inh inhalation BID 10/24/21 03/26/23 03/04/23 History mcg/dose blistr powdr for inhalation (Advair Diskus) furosemide 40 mg tablet 120 mg PO QAM 10/24/21 03/26/23 03/25/23 History gabapentin 600 mg tablet 600 mg PO TID 10/24/21 03/26/23 03/23/23 History glipizide 10 mg tablet 10 mg PO QAM 10/24/21 03/26/23 03/25/23 History hydrochlorothiazide 25 mg tablet 25 mg PO QAM 10/24/21 03/26/23 03/25/23 History methocarbamol 750 mg tablet 750 mg PO TID 10/24/21 03/26/23 03/25/23 History nifedipine 30 mg tablet,extended 30 mg PO QAM 10/24/21 03/26/23 03/25/23 History release oxycodone-acetaminophen 10 mg-325 1 tab PO TID PRN Pain 10/24/21 03/26/23 03/26/23 History mg tablet ranolazine 1,000 mg 1,000 mg PO BID 10/24/21 03/26/23 03/25/23 History tablet,extended release,12 hr risperidone 1 mg tablet See Rx Instructions .Route .COMPLEX 10/24/21 03/26/23 03/25/23 History rivaroxaban 2.5 mg tablet (Xarelto) 2.5 mg PO BID 10/24/21 03/26/23 03/25/23 History spironolactone 25 mg tablet 12.5 mg PO QAM 10/24/21 03/26/23 03/25/23 History trazodone 50 mg tablet 100 mg PO BEDTIME 10/24/21 03/26/23 03/24/23 History insulin glargine 100 unit/mL (3 See Rx Instructions .Route 10/26/21 03/26/23 03/25/23 Rx mL) subcutaneous pen (Lantus .COMPLEX #15 mL Solostar U-100 Insulin) clindamycin HCl 300 mg capsule 300 mg PO Q8H #21 caps 03/12/23 03/26/23 03/25/23 Rx Allergies Allergy/AdvReac Type Severity Reaction Status Date / Time insulin aspart Allergy ALGY-Hives Verified 03/26/23 10:20 [From Novolog U-100 Insulin aspart] tiotropium Allergy CHEST Verified 03/26/23 10:20 [From Spiriva with TIGHTNESS HandiHaler] [facility] Anesthesia Medical History Psychiatric care Amputation toe COPD (chronic obstructive pulmonary disease) Hypertension Diabetic foot infection Diabetes STEMI (ST elevation myocardial infarction) CAD (coronary artery disease) Surgical History Stented coronary artery Family History Other Diabetes Social History Smoking and tobacco/nicotine status: current every day tobacco/nicotine user Alcohol intake: never Substance/Drug Use: never Data Anesthesia Cardiac Studies: Echocardiogram 10/24/21 Sestamibi Stress Test (Cardiology) 10/25/21
[2023-03-26] MEDS: gabapentin 300 mg Capsule PO (10:38)
[2023-03-26] MEDS: sodium chloride 0.9% 1,000 ML 30 ML IV (10:39)
[2023-03-26] MEDS: acetaminophen 1,000 MG/100 ML PIGGYBACK 400 MG IV (10:39)
[2023-03-26 10:49] LABS: Glucose Point of Care 164 mg/dL (70-110)
[2023-03-26] MEDS: fentaNYL 50 mcg/mL INJ 2mL IVP ×2 (11:39→12:57)
--- NOTE | 2023-03-26 11:45 | W.PM.OPSUD ---
Surgery/Procedure H&P Update DATE OF PROCEDURE: March 26, 2023 DATE H&P PERFORMED: 03/20/23 H&P UPDATE INFORMATION: I have reviewed H&P completed within last 30 days, I have examined patient prior to procedure, No changes to prior documentation and H&P is in [facility] EMR on date indicated PREOP DIAGNOSIS: Right foot abscess PLANNED PROCEDURE: Operation Date: 03/26/23 12:00 Proposed Procedures p Incision And Drainage(right Foot)(Right) - Luis Eduardo Lindo DPM
[2023-03-26] MEDS: ceFAZolin 2,000 MG in sodium chloride 0.9% (plus) 50 ML 100 MG IV (12:07)
[2023-03-26] MEDS: BUPivacaine 0.5% INJ 30 mL XX (12:31)
[2023-03-26] MEDS: ceFAZolin 1,000 mg SDV 1000 MG IVP (12:31)
--- NOTE | 2023-03-26 12:54 | W.PM.BPON ---
Date of procedure: 03/26/2023 Surgeon name: Dr. Luis Eduardo Lindo D.P.M. Wet Pan Mixer(s) name(s): Nuvia Procedure(s) performed: Incision bone cortex right foot Description of findings: Osteomyelitic changes to right foot third metatarsal head. Abscess formation around both Estimated blood loss: 5 cc Tourniquet time: 22 minutes Specimen(s) removed: Deep tissue and third metatarsal head sent as surgical specimen. Cultures aerobic and anaerobic sent to micro for ID and sensitivity Post-operative diagnosis: Osteomyelitis, abscess right foot
--- NOTE | 2023-03-26 12:55 | PM.OP ---
Operative Report Date of procedure: March 26, 2023 Pre-op diagnosis: Abscess right foot Post-op diagnosis: Osteomyelitis right 3rd metatarsal head Post-op findings: Discoloration and erosive changes to right foot third metatarsal head consistent with osteomyelitis Procedure done: Incision bone cortex right foot third metatarsal CPT 62410 Specimens removed/disposition: Cultures both aerobic and anaerobic were sent to micro for ID and sensitivity Pathology: Third metatarsal head sent to pathology as surgical specimen Surgeon: Luis Eduardo Lindo DPM Estimated blood loss: 5 cc 22 minutes Complications: None Findings: See above Procedure: Patient is a 62-year-old male that has a history of puncture wound to right foot. The patient stepped on a nail of the right foot and weeks leading up to his trip to the operating room today. Patient developed red hot swollen foot. MRI revealed changes consistent with probable abscess. The extent of infection necessitates at the minimum incision and drainage for which the patient presents to the operating room today. A lengthy discussion regarding the procedure, including risks and complications has been had with the patient and is noted in the recent clinic note. Written and verbal consent have been obtained. All patient questions have been answered to the patient?s satisfaction. No written or verbal guarantees have been given or implied. The patient has been NPO since midnight. The history has been reviewed and the history and physical is current. The signed consent was confirmed and placed in the patient chart. Patient imaging has been reviewed and is consistent with the diagnosis. Under mild sedation, the patient was brought into the operating room and placed on the table in the supine position. IV antibiotics were given by the anesthesia team as preoperative surgical prophylaxis. IV sedation was then performed by the anesthesiateam. A local field block was performed using 0.5% Marcaine plain. A pneumatic tourniquet was then placed about the right ankle. The operative extremity was then prepped and draped in the usual fashion. The extremity was then elevated and exsanguinated before the tourniquet was inflated to 250 mmHg. After inflation, the following procedure was then performed. Attention was directed to the right foot where a 5 cm incision was made overlying the third metatarsal. Blunt dissection was carried down through subcutaneous and superficial fascia. There was noted to be an accumulation of phlegmonous appearing tissue overlying the third metatarsal head. Further dissection revealed that this fully enveloped the third metatarsal head. This was dissected and removed from the operative field to be sent as specimen. A #15 blade was then used to incise the cortex of the third metatarsal overlying the head and neck of the third metatarsal. Periosteum was reflected to reveal the underlying bone which showed discoloration and degenerative changes indicative of osteomyelitis. Sagittal bone saw was used to make an osteotomy through the distal portion of the third metatarsal. The infected portion of bone was removed from the operative field and sent to pathology as surgical specimen. The remaining bone appeared healthy and viable in nature. No further abscess or phlegmonous tissue was visualized. Cultures both aerobic and anaerobic were taken at this point and sent to micro for ID and sensitivity. The site was irrigated with copious amounts of sterile saline. After irrigation, attention was directed to closure. Skin was closed with 3-0 Prolene in horizontal mattress fashion. The tourniquet was let down and good hyperemic response was noted to all digits of the right foot. The incision site was dressed with Xeroform, 4 x 4 gauze, Kerlix, Guicho. The patient tolerated the procedure and anesthesia well and without complication. The patient was transported from the operating room to the recovery room with vital signs stable and vascular status intact to all digits of the right foot. The patient was given both written and verbal instructions to remain weightbearing as tolerated in postop shoe to the operative extremity, to keep dressings/splint clean, dry and intact and to take pain medication as directed. The patient will follow-up in the outpatient setting at their scheduled appointment. The patient was discharged with my personal number and was instructed to call if any questions or issues should arise. They were discharged home once anesthesia criteria was met.
[2023-03-26] MEDS: HYDROcodone-acetaminophen 5-325 mg Tablet 1 TAB PO (13:33)
--- NOTE | 2023-03-26 14:00 | ANE.PACU2 ---
Inpatient post-anesthesia follow up: Airway intact: Yes Vital signs: Temperature 97.2 F Pulse Rate 60 Respiratory Rate 16 Blood Pressure 133/82 Pulse Oximetry 92 Oxygen Delivery Me thod Room Air Oxygen Flow Rate 6 Fraction of Inspir ed Oxygen Hydration adequate: Yes Nausea and vomiting: No Pain level: 1 Mental status: Baseline
== END 2023-03-26 14:01 | disposition home or self-care (01) ==
PROVIDERS: PCP Family Medicine; Visit Provider Podiatrist Foot & Ankle Surgery
PROC: (CPT 28005; principal; 2023-03-26 12:00)
DX: M86.8X7 Other osteomyelitis, ankle and foot (principal); J44.9 Chronic obstructive pulmonary disease, unspecified; Z99.81 Dependence on supplemental oxygen; I25.10 Atherosclerotic heart disease of native coronary artery without angina pectoris; I25.2 Old myocardial infarction; Z95.5 Presence of coronary angioplasty implant and graft; E11.9 Type 2 diabetes mellitus without complications; E66.01 Morbid (severe) obesity due to excess calories; Z68.41 Body mass index [BMI] 40.0-44.9, adult; Z86.73 Personal history of transient ischemic attack (TIA), and cerebral infarction without residual deficits; Z79.82 Long term (current) use of aspirin
CPT/HCPCS: 28005; 36416; 82962; 87070; 87075; 87176; 87205; 88305; 88311; J0131; J0690; J2250; J2704; J3010; J3490; J7030

== ENCOUNTER → 2023-03-30 11:15 | Outpatient (BNVA) | payer MEDICARE, SELFPAY | PROVIDERS: PCP Family Medicine; Visit Provider Podiatrist Foot & Ankle Surgery | DX: F43.12 Post-traumatic stress disorder, chronic; F31.9 Bipolar disorder, unspecified; F10.20 Alcohol dependence, uncomplicated; Z79.899 Other long term (current) drug therapy | CPT/HCPCS: 73630; 80061; 83036; 99024 ==

== ENCOUNTER → 2023-04-09 09:03 | Outpatient (BNVA) | payer MEDICARE, SELFPAY | PROVIDERS: PCP Family Medicine; Visit Provider Podiatrist Foot & Ankle Surgery | DX: Z98.890 Other specified postprocedural states (principal); L03.90 Cellulitis, unspecified | CPT/HCPCS: 99024 ==

== ENCOUNTER → 2023-05-07 09:35 | Outpatient (BNVA) | payer MEDICARE, SELFPAY | PROVIDERS: PCP Family Medicine; Visit Provider Podiatrist Foot & Ankle Surgery | DX: L60.3 Nail dystrophy (principal); G62.9 Polyneuropathy, unspecified; M77.41 Metatarsalgia, right foot; M77.42 Metatarsalgia, left foot; E11.42 Type 2 diabetes mellitus with diabetic polyneuropathy; Z79.4 Long term (current) use of insulin | CPT/HCPCS: 11721 ==

== ENCOUNTER → 2023-07-13 07:37 | Outpatient (BNVA) | payer MEDICARE, SELFPAY | PROVIDERS: PCP Family Medicine; Visit Provider Podiatrist Foot & Ankle Surgery | DX: L60.3 Nail dystrophy (principal); G62.9 Polyneuropathy, unspecified; M77.41 Metatarsalgia, right foot; M77.42 Metatarsalgia, left foot; L84 Corns and callosities; E11.42 Type 2 diabetes mellitus with diabetic polyneuropathy; Z79.4 Long term (current) use of insulin | CPT/HCPCS: 11055; 11721 ==